=== PATIENT | male | born 1955 | race Caucasian/White ===

== ENCOUNTER 2020-10-09 06:09 | Outpatient (REF) | payer BC, SELFPAY ==
[2020-10-09 11:08] LABS: Urine Cytology See Pathology rpt
[2020-10-09 11:14] LABS: MANUAL DIFF FLAG NO
[2020-10-09 11:31] LABS: Basophils Absolute Auto 0.1 X10*3/uL (0.0-0.2); Basophils Percent Auto 1.1 % (0-2); Eosinophils Absolute Auto 0.2 X10*3/uL (0.0-0.4); Hematocrit 45.3 % (42-52); Hemoglobin 15.3 g/dl (14.0-18.0); Imm Gran Abs Auto 0.02 X10*3/uL (0.00-0.03); Imm Gran Pct Auto 0.3 % (0.0-0.4); Lymphocytes Absolute Auto 1.5 X10*3/uL (1.2-4.9); Lymphocytes Percent Auto 19.7 % (20-40); Mean Corpuscular HGB Conc 33.8 g/dl (31.0-36.0); Mean Corpuscular Hemoglobin 29.8 pg (27.0-33.0); Mean Corpuscular Volume 88.3 fL (80-98); Mean Platelet Volume 10.2 fL (9.4-12.4); Monocytes Absolute Auto 0.5 X10*3/uL (0.1-1.2); Monocytes Percent Auto 7.1 % (2-11); Neutrophils Absolute Auto 5.2 X10*3/uL (2.0-8.3); Neutrophils Percent Auto 68.8 % (45-73); Platelet Count 344 X10*3/uL (160-400); Red Blood Count 5.13 X10*6/uL (4.60-5.80); Red Cell Distribution Width 13.2 % (11.0-16.0); White Blood Count 7.6 X10*3/uL (4.8-10.8)
[2020-10-09 11:41] LABS: Glucose Urine UA NEG (NEG); Leukocyte Esterase Urine TRACE (NEG); Nitrite Urine POS (NEG); PH 5.5 (5.0-8.0); Specific Gravity - Urine 1.025 (1.005-1.025); Urine Blood 1+ (NEG); Urine Ketones NEG (NEG); Urine Protein TRACE MG/DL (NEG-TRACE)
[2020-10-09 11:42] LABS: Appearance Urine HAZY; Color Urine YELLOW
[2020-10-09 12:15] LABS: Bacteria Urine 1+ /LPF; Squamous Epithelial Cell Urine TRACE /LPF
[2020-10-09 12:27] LABS: Thyroid Stimulating Hormone 1.12 uIU/mL (0.32-4.0); Vitamin D 25-OH Total 32.9 ng/mL (>30)
[2020-10-09 12:33] LABS: Alanine Aminotransferase 25 U/L (0-40); Albumin Level 4.7 g/dL (3.5-5.0); Alkaline Phosphatase 84 U/L (39-117); Anion Gap 17 (12-20); Aspartate Amino Transferase 18 U/L (5-37); Bilirubin Total 0.4 mg/dL (0.0-1.0); Blood Urea Nitrogen 16 mg/dL (9-16); Calcium 9.5 mg/dL (8.4-10.2); Carbon Dioxide 22 mmol/L (22-29); Chloride 104 mmol/L (96-108); Cholesterol 166 mg/dL; Estimated Glomerular Filt Rate > 60; Glucose Fasting 106 mg/dL (60-99); HDL Cholesterol 40 mg/dL; LDL Cholesterol Calculated 102 mg/dl; Potassium 4.7 mmol/L (3.3-5.1); Sodium 138 mmol/L (135-145); Total Protein 7.3 g/dL (6.5-8.0); Triglycerides 121 mg/dL; Uric Acid 6.9 mg/dL (3.4-7.0)
[2020-10-09 13:29] LABS: Prostate Specific Antigen < 0.05 ng/mL (<0.05-4.0)
== END 2020-10-09 06:10 | disposition home or self-care (01) ==
LOC: HO.HMGCLDS 06:09
PROVIDERS: PCP Internal Medicine; Visit Provider Internal Medicine
DX: I10 Essential (primary) hypertension (principal); E66.01 Morbid (severe) obesity due to excess calories; E78.00 Pure hypercholesterolemia, unspecified; E55.9 Vitamin D deficiency, unspecified; M10.072 Idiopathic gout, left ankle and foot; Z98.890 Other specified postprocedural states
CPT/HCPCS: 36415; 80053; 80061; 81001; 82306; 84153; 84443; 84550; 85025; 88112

== ENCOUNTER 2020-12-17 10:19 | Outpatient (REF) | payer BC, SELFPAY ==
[2020-12-17 12:14] LABS: Blood Urea Nitrogen 22 mg/dL (9-16); Estimated Glomerular Filt Rate > 60
== END 2020-12-17 10:20 | disposition home or self-care (01) ==
LOC: HO.HMGCLDS 10:19
PROVIDERS: PCP Internal Medicine; Visit Provider Urology
DX: C67.0 Malignant neoplasm of trigone of bladder (principal)
CPT/HCPCS: 36415; 82565; 84520

== ENCOUNTER 2021-04-13 06:55 | Day surgery (SDC) | payer BC, SELFPAY ==
[2021-04-07 14:59] VITALS: BMI 47.5
[2021-04-13 07:08] VITALS: BP 147/82; PULSE 58; RESP 16; TEMP 35.9; O2SAT 96
[2021-04-13] MEDS: Lactated Ringers 1,000 ML 50 ML IVCONT (07:26)
--- NOTE | 2021-04-13 08:12 | MHC.SHP ---
Pre-Procedural Eval Section A Date of Service: 04/13/21 The patient is an INPATIENT: No Changes since office visit: No Cold of Flu in the past 2 weeks, No New Medical Problems, No Changes in Medication and No Patient answered all questions The History & Physical has been completed within 30 days and I have reviewed it.: Yes Section B Chief Complaint: screening,epigastric pain Allergies: Allergies Allergy/AdvReac Type Severity Reaction Status Date / Time NSAIDS (Non-Steroidal AdvReac Intermediate Gastrointestinal Verified 04/07/21 14:41 Anti-Inflamma Upset Plan I have reviewed the history and physical and performed a pertinent physical examination on my patient. No changes have occurred unless specified.
--- NOTE | 2021-04-13 08:39 | P.CONAN_ITS ---
[facility] Past Medical History Medical History Asthma Bladder cancer COVID-19 vaccine series completed Elevated cholesterol Essential tremor Gout HTN (hypertension) Prostate cancer Sleep apnea Surgical History Surgical History H/O colonoscopy Hx of cystoscopy Hx of cystoscopy Hx of prostatectomy Hx of resection of small bowel History of Problems with Anesthesia: No Social History Social History Are you a primary care professional to a significant other at home: No Do you presently have visiting nurse or other home services: No Patient Tobacco Use Status: Former Tobacco user Quit Date: 1999 Tobacco use type: Cigarette Use of substances other than those prescribed or required for medical reasons: No Have you been hit, kicked, punched, or otherwise hurt by someone within the past year? If so, by whom?: No Are you DNR?: No Advance Directives Information Provided: Yes (states is his ) Advance Directives on File: No Recently lost weight without trying: No Nutrition Risks: No Nutritional Risk Poor oral hygiene: No Meds Allergies Allergy/AdvReac Type Severity Reaction Status Date / Time NSAIDS (Non-Steroidal AdvReac Intermediate Gastrointestinal Verified 04/07/21 14:41 Anti-Inflamma Upset Active Medications: Current Medications Generic Name Dose Route Start Last Admin Trade Name Freq PRN Reason Stop Dose Admin Lactated Ringer's 1,000 mls @ 50 mls/hr 04/13/21 08:30 04/13/21 07:26 Lr IVCONT 50 mls/hr .Q20H AVIS Administration Home Medications Medication Instructions Recorded Confirmed Last Taken Type albuterol sulfate 90 mcg/actuation 2 puff PO Q6H PRN 04/07/21 04/07/21 Unknown History aerosol inhaler allopurinol 300 mg tablet 1 tab PO DAILY 04/07/21 04/07/21 Unknown History aspirin 81 mg tablet,delayed 81 mg PO DAILY 04/07/21 04/07/21 Unknown History release (Aspirin Low Dose) cholecalciferol (vitamin D3) 50 50 mcg PO DAILY 04/07/21 04/07/21 Unknown History mcg (2,000 unit) capsule (Vitamin D3) lisinopril 40 mg tablet 1 tab PO DAILY 04/07/21 04/07/21 Unknown History pravastatin 40 mg tablet 1 tab PO DAILY 04/07/21 04/07/21 Unknown History propranolol 60 mg capsule,24 1 cap PO DAILY 04/07/21 04/07/21 04/13/21 06:00 History hr,extended release Exam Exam Date and Time: April 13, 2021 0839 Height,Weight and Vital Signs: Height 6 ft 1 in Weight 163.293 kg Last Vital Signs Temp 96.7 F L 04/13/21 07:08 Pulse 58 04/13/21 07:08 Resp 16 04/13/21 07:08 BP 147/82 H 04/13/21 07:08 Pulse Ox 96 04/13/21 07:08 Airway Mallampati Class: III TM Dist: >3cm Neck ROM: Limited Loose/Missing/Broken Teeth: No Heart: RRR Lungs: CTA Assessment and Plan Assessment Anesthesia Assessment: Anesthesia Plan Discussed and Chart Reviewed Final Anesthetic Review History of Problems with Anesthesia: No NPO: Yes ASA Class: III Final Preanesthetic Review: Meds/Allgs Chart Reviewed, Consent Obtained/Reviewed and Anes Risks/Benef Reviewed Patient Risk: Intermediate Procedure Risk: Intermediate Anesthetic Plan Anesthetic Plan: MAC: Disposition: Standard PACU
--- NOTE | 2021-04-13 09:14 | P.BOP_ITS ---
Brief Operative Note Date of Service: 04/13/21 Pre-op diagnosis: screening, epigastric pain Post-op diagnosis: same Procedure: egd, colonoscopy Surgeon: Francisco Blackburn Anesthesia: MAC Was an Assistant To The Vice President used for this Procedure?: No Estimated blood loss (mL): 2 Pathology: other (see nurses notes) Condition: stable Disposition: PACU
[2021-04-13 09:17] VITALS: BP 122/67; PULSE 61; RESP 18; TEMP 36.1; O2SAT 98
[2021-04-13 09:32] VITALS: BP 125/61; PULSE 51; RESP 18; TEMP 36.1; O2SAT 96
--- NOTE | 2021-04-13 10:49 | OP_ITS ---
SURGEON: Francisco Blackburn MD INDICATIONS: 1. Epigastric pain. 2. Colon cancer screening. PREOPERATIVE DIAGNOSIS: POSTOPERATIVE DIAGNOSIS: PROCEDURE PERFORMED: 1. Upper endoscopy with biopsy. 2. Colonoscopy to the terminal ileum. ESTIMATED BLOOD LOSS: COMPLICATIONS: ANESTHESIA: ASSISTANTS: SPECIMENS: MEDICATIONS: Monitored anesthesia care. DESCRIPTION OF PROCEDURE: The history and physical performed. The risks and benefits of the procedure were explained to the patient. Informed consent was obtained. The patient was placed in the left lateral decubitus position. The Olympus video gastroscope was introduced into the esophagus, stomach, and duodenum. Examination was performed and the scope was removed. He was repositioned for colonoscopy. A digital rectal exam was performed and was found to be normal. The Olympus pediatric video colonoscope was introduced into the rectum and advanced to the cecum without difficulty. The cecum was identified by transillumination, palpation, and identification of ileocecal valve. Care was used to ensure that the scope negotiated the large abdominal wall hernia carefully and no excessive pressure was used to move the scope to the cecum. FINDINGS: UPPER ENDOSCOPY: Esophagus: There was a 2 cm area of likely Velarde's esophagus extending from 41 to 43 cm. Biopsies were obtained at 43 cm at the EG junction and at 41 cm. There was no raised lesions or ulcerated areas. Stomach: The stomach was normal. No ulcer was seen. Biopsies were obtained from the antrum. Duodenum: The bulb and second portion were normal. COLONOSCOPY: The terminal ileum was briefly examined and appeared normal. There was a large amount of liquid stool and formed stool limiting the examination for detection of small polyps. This was washed and suctioned as best possible. No polyps were identified. There was mild sigmoid diverticulosis. Retroflexed examination showed small internal hemorrhoids. IMPRESSION: 1. Velarde's esophagus. 2. Diverticulosis. RECOMMENDATIONS: 1. Follow up the biopsy results. 2. Repeat colonoscopy is recommended in 10 years for average risk individuals. MD JAH Perez/CHARLIE / [id number]
== END 2021-04-13 10:00 | disposition home or self-care (01) ==
PROVIDERS: PCP Internal Medicine; Visit Provider Internal Medicine Gastroenterology
PROC: (CPT 45378; principal; 2021-04-13 08:10)
DX: Z12.11 Encounter for screening for malignant neoplasm of colon (principal); K57.30 Diverticulosis of large intestine without perforation or abscess without bleeding; R10.13 Epigastric pain; K22.70 Barrett's esophagus without dysplasia; K43.9 Ventral hernia without obstruction or gangrene; I10 Essential (primary) hypertension; Z79.82 Long term (current) use of aspirin; Z79.899 Other long term (current) drug therapy
CPT/HCPCS: 45378; 43239; 88305; 88342; J2405; J2765

== ENCOUNTER 2021-05-04 06:26 | Outpatient (REF) | payer BC, SELFPAY ==
[2021-05-04 12:32] LABS: Blood Urea Nitrogen 20 mg/dL (9-16); Estimated Glomerular Filt Rate > 60
== END 2021-05-04 06:27 | disposition home or self-care (01) ==
LOC: HO.HMGCLDS 06:26
PROVIDERS: PCP Internal Medicine; Visit Provider Urology
DX: C67.0 Malignant neoplasm of trigone of bladder (principal)
CPT/HCPCS: 36415; 82565; 84520

== ENCOUNTER → 2021-12-07 07:57 | Outpatient (BNVA) | payer BC, SELFPAY | PROVIDERS: PCP Internal Medicine; Visit Provider Nurse Practitioner Family | DX: Z13.89 Encounter for screening for other disorder (principal) ==

== ENCOUNTER → 2022-01-03 09:01 | Outpatient (REF) | payer BC, SELFPAY | LOC: HO.SL 09:01 | PROVIDERS: PCP Internal Medicine; Visit Provider Nurse Practitioner Family | DX: G47.33 Obstructive sleep apnea (adult) (pediatric) (principal); R06.83 Snoring; G47.00 Insomnia, unspecified; G47.19 Other hypersomnia | CPT/HCPCS: 95806 ==

== ENCOUNTER 2022-02-04 06:34 | Outpatient (REF) | payer BC, SELFPAY ==
[2022-02-04 11:14] LABS: MANUAL DIFF FLAG NO
[2022-02-04 11:19] LABS: Basophils Absolute Auto 0.1 X10*3/uL (0.0-0.2); Eosinophils Absolute Auto 0.3 X10*3/uL (0.0-0.4); Eosinophils Percent Auto 3.9 % (0-4); Hematocrit 43.4 % (42.0-52.0); Hemoglobin 14.7 g/dl (14.0-18.0); Imm Gran Abs Auto 0.03 X10*3/uL (0.00-0.03); Imm Gran Pct Auto 0.4 % (0.0-0.4); Lymphocytes Absolute Auto 1.5 X10*3/uL (1.2-4.9); Lymphocytes Percent Auto 21.5 % (20-40); Mean Corpuscular HGB Conc 33.9 g/dl (31.0-36.0); Mean Corpuscular Hemoglobin 30.3 pg (27.0-33.0); Mean Corpuscular Volume 89.5 fL (80.0-98.0); Mean Platelet Volume 10.1 fL (9.4-12.4); Monocytes Absolute Auto 0.6 X10*3/uL (0.1-1.2); Monocytes Percent Auto 8.2 % (2-11); Neutrophils Absolute Auto 4.5 x10*3/uL (2.0-8.3); Platelet Count 296 X10*3/uL (160-400); Red Blood Count 4.85 X10*6/uL (4.60-5.80)
[2022-02-04 11:47] LABS: Alanine Aminotransferase 22 U/L (0-40); Albumin Level 4.3 g/dL (3.5-5.0); Alkaline Phosphatase 103 U/L (39-117); Anion Gap 13 (12-20); Aspartate Amino Transferase 18 U/L (5-37); Bilirubin Total 0.5 mg/dL (0.0-1.0); Blood Urea Nitrogen 20 mg/dL (9-16); C Reactive Protein 0.63 mg/dL (< or = 0.50); Carbon Dioxide 24 mmol/L (22-29); Chloride 105 mmol/L (96-108); Cholesterol 135 mg/dL; Estimated Glomerular Filt Rate > 60; Glucose Fasting 104 mg/dL (60-99); HDL Cholesterol 34 mg/dL; LDL Cholesterol Calculated 75 mg/dl; Potassium 4.3 mmol/L (3.3-5.1); Sodium 138 mmol/L (135-145); Total Protein 6.5 g/dL (6.5-8.0); Triglycerides 133 mg/dL; Uric Acid 5.9 mg/dL (3.4-7.0)
[2022-02-04 11:59] LABS: Erythrocyte Sedimentation Rate 4 MM/HR (0-15)
[2022-02-04 12:02] LABS: Thyroid Stimulating Hormone 1.94 uIU/mL (0.32-4.0); Vitamin D 25-OH Total 25.8 ng/mL (>30)
== END 2022-02-04 06:35 | disposition home or self-care (01) ==
LOC: HO.HMGCLDS 06:34
PROVIDERS: Visit Provider Internal Medicine
DX: G47.9 Sleep disorder, unspecified (principal); I10 Essential (primary) hypertension; E55.9 Vitamin D deficiency, unspecified; E78.00 Pure hypercholesterolemia, unspecified; R25.1 Tremor, unspecified; E66.01 Morbid (severe) obesity due to excess calories; M10.072 Idiopathic gout, left ankle and foot
CPT/HCPCS: 36415; 80053; 80061; 82306; 84443; 84550; 85025; 85652; 86140

== ENCOUNTER 2022-07-13 14:44 | Outpatient (REF) | payer BC, SELFPAY ==
[2022-07-13 16:28] LABS: MANUAL DIFF FLAG NO
[2022-07-13 16:34] LABS: Basophils Absolute Auto 0.1 X10*3/uL (0.0-0.2); Basophils Percent Auto 0.8 % (0-2); Eosinophils Absolute Auto 0.2 X10*3/uL (0.0-0.4); Eosinophils Percent Auto 1.5 % (0-4); Hematocrit 43.7 % (42.0-52.0); Hemoglobin 15.2 g/dl (14.0-18.0); Imm Gran Abs Auto 0.05 X10*3/uL (0.00-0.03); Imm Gran Pct Auto 0.5 % (0.0-0.4); Lymphocytes Absolute Auto 1.6 X10*3/uL (1.2-4.9); Lymphocytes Percent Auto 16.6 % (20-40); Mean Corpuscular HGB Conc 34.8 g/dl (31.0-36.0); Mean Corpuscular Hemoglobin 30.4 pg (27.0-33.0); Mean Corpuscular Volume 87.4 fL (80.0-98.0); Mean Platelet Volume 10.1 fL (9.4-12.4); Monocytes Absolute Auto 0.7 X10*3/uL (0.1-1.2); Monocytes Percent Auto 7.4 % (2-11); Neutrophils Absolute Auto 7.3 x10*3/uL (2.0-8.3); Neutrophils Percent Auto 73.2 % (45-73); Platelet Count 356 X10*3/uL (160-400); Red Cell Distribution Width 12.4 % (11.0-16.0); White Blood Count 9.9 X10*3/uL (4.8-10.8)
[2022-07-13 16:47] LABS: Alanine Aminotransferase 22 U/L (0-40); Albumin Level 4.5 g/dL (3.5-5.0); Alkaline Phosphatase 81 U/L (39-117); Anion Gap 13 (12-20); Aspartate Amino Transferase 15 U/L (5-37); Bilirubin Total 0.4 mg/dL (0.0-1.0); Blood Urea Nitrogen 14 mg/dL (9-16); C Reactive Protein 0.81 mg/dL (< or = 0.50); Calcium 9.5 mg/dL (8.4-10.2); Carbon Dioxide 26 mmol/L (22-29); Chloride 100 mmol/L (96-108); Estimated Glomerular Filt Rate > 60; Glucose Random 96 mg/dL (60-115); Sodium 135 mmol/L (135-145); Total Protein 6.7 g/dL (6.5-8.0)
== END 2022-07-13 14:45 | disposition home or self-care (01) ==
LOC: HO.HMGCLDS 14:44
PROVIDERS: PCP Internal Medicine; Visit Provider Internal Medicine
DX: Z13.89 Encounter for screening for other disorder (principal)
CPT/HCPCS: 36415; 80053; 85025; 86140

== ENCOUNTER 2022-07-14 06:36 | Outpatient (REF) | payer BC, SELFPAY ==
[2022-07-14 13:19] LABS: Adenovirus F 40/41 Not Detected (Not Detect.); Astrovirus Not Detected (Not Detect.); Campylobacter Not Detected (Not Detect.); Cryptosporidium Not Detected (Not Detect.); Cyclospora cayetanensis Not Detected (Not Detect.); E. coli EAEC Not Detected (Not Detect.); E. coli EPEC Not Detected (Not Detect.); E. coli ETEC Not Detected (Not Detect.); E. coli STEC Not Detected (Not Detect.); Entamoeba histolytica Not Detected (Not Detect.); Giardia lamblia Not Detected (Not Detect.); Norovirus GI/GII Not Detected (Not Detect.); Plesiomonas shigelloides Not Detected (Not Detect.); Rotavirus A Not Detected (Not Detect.); Salmonella Not Detected (Not Detect.); Sapovirus Not Detected (Not Detect.); Shigella sp./EIEC Not Detected (Not Detect.); Vibrio Not Detected (Not Detect.); Vibrio Cholerae Not Detected (Not Detect.); Yersinia enterocolitica Not Detected (Not Detect.)
[2022-07-14 13:45] LABS: CDiff Gene PCR NEGATIVE (Negative)
== END 2022-07-14 06:37 | disposition home or self-care (01) ==
LOC: HO.HMGCLDS 06:36
PROVIDERS: PCP Internal Medicine; Visit Provider Internal Medicine
DX: R19.7 Diarrhea, unspecified (principal)
CPT/HCPCS: 87493; 87507

== ENCOUNTER 2022-10-31 06:13 | Outpatient (REF) | payer MEDICARE, SELFPAY ==
[2022-10-31 11:36] LABS: MANUAL DIFF FLAG NO
[2022-10-31 11:49] LABS: Basophils Absolute Auto 0.1 X10*3/uL (0.0-0.2); Basophils Percent Auto 0.9 % (0-2); Eosinophils Absolute Auto 0.2 X10*3/uL (0.0-0.4); Eosinophils Percent Auto 3.2 % (0-4); Hematocrit 45.6 % (42.0-52.0); Hemoglobin 14.9 g/dl (14.0-18.0); Imm Gran Abs Auto 0.03 X10*3/uL (0.00-0.03); Imm Gran Pct Auto 0.4 % (0.0-0.4); Lymphocytes Absolute Auto 1.4 X10*3/uL (1.2-4.9); Lymphocytes Percent Auto 19.3 % (20-40); Mean Corpuscular HGB Conc 32.7 g/dl (31.0-36.0); Mean Corpuscular Hemoglobin 29.8 pg (27.0-33.0); Mean Corpuscular Volume 91.2 fL (80.0-98.0); Mean Platelet Volume 9.8 fL (9.4-12.4); Monocytes Absolute Auto 0.5 X10*3/uL (0.1-1.2); Monocytes Percent Auto 7.1 % (2-11); Neutrophils Absolute Auto 5.2 x10*3/uL (2.0-8.3); Neutrophils Percent Auto 69.1 % (45-73); Platelet Count 308 X10*3/uL (160-400); Red Cell Distribution Width 12.8 % (11.0-16.0); White Blood Count 7.5 X10*3/uL (4.8-10.8)
[2022-10-31 11:52] LABS: Appearance Urine Cloudy; Color Urine Yellow; Glucose Urine UA Negative (Negative); Leukocyte Esterase Urine Small (1+) (Negative); Nitrite Urine Negative (Negative); PH 5.5 (5.0-9.0); UMIC TRIGGER UA YES; Urine Blood Trace (Negative); Urine Ketones Negative (Negative); Urine Protein 30 (1+) mg/dL (Neg-Trace)
[2022-10-31 11:59] LABS: Bacteria Urine None Seen (None Seen); Hyaline Casts Urine 0-2 /LPF (0-2); WBC Urine 21-50 /HPF (0-5)
[2022-10-31 12:32] LABS: Alanine Aminotransferase 25 U/L (0-40); Albumin Level 4.5 g/dL (3.5-5.0); Alkaline Phosphatase 80 U/L (39-117); Anion Gap 14 (12-20); Aspartate Amino Transferase 17 U/L (5-37); Bilirubin Total 0.7 mg/dL (0.0-1.0); Blood Urea Nitrogen 18 mg/dL (9-16); Calcium 9.5 mg/dL (8.4-10.2); Carbon Dioxide 28 mmol/L (22-29); Chloride 102 mmol/L (96-108); Cholesterol 143 mg/dL; Estimated Glomerular Filt Rate > 60; Glucose Fasting 104 mg/dL (60-99); HDL Cholesterol 39 mg/dL; LDL Cholesterol Calculated 81 mg/dl; Potassium 4.6 mmol/L (3.3-5.1); Sodium 139 mmol/L (135-145); Total Protein 6.7 g/dL (6.5-8.0); Triglycerides 119 mg/dL; Uric Acid 5.2 mg/dL (3.4-7.0)
[2022-10-31 13:06] LABS: Thyroid Stimulating Hormone 1.24 uIU/mL (0.32-4.0); Vitamin D 25-OH Total 32.9 ng/mL (>30)
[2022-10-31 14:45] LABS: Prostate Specific Antigen < 0.10 ng/mL (<0.05-4.0)
== END 2022-10-31 06:14 | disposition home or self-care (01) ==
LOC: HO.HMGCLDS 06:13
PROVIDERS: PCP Internal Medicine; Visit Provider Internal Medicine
DX: Z12.5 Encounter for screening for malignant neoplasm of prostate (principal); M10.072 Idiopathic gout, left ankle and foot; I10 Essential (primary) hypertension; E55.9 Vitamin D deficiency, unspecified; E66.01 Morbid (severe) obesity due to excess calories; E78.00 Pure hypercholesterolemia, unspecified
CPT/HCPCS: 36415; 80053; 80061; 81001; 82306; 84153; 84443; 84550; 85025

== ENCOUNTER 2023-04-04 09:14 | Day surgery (SDC) | payer MEDICARE, SELFPAY ==
--- NOTE | 2023-04-04 09:12 | P.CONAN_ITS ---
HPI - Anesthesia Eval Consult details Narrative: egd PMFSH Active Problems Active Problems: All Active Problems (Updated 02/08/22 @ 09:16 by Crissy Rosales CNP) ROMIE (obstructive sleep apnea) (Acute) Excessive daytime sleepiness (Acute) Insomnia (Acute) Sleep disorder, unspecified (Acute) Past Medical History Medical History Asthma Bladder cancer COVID-19 vaccine series completed Elevated cholesterol Essential tremor Gout HTN (hypertension) Prostate cancer Sleep apnea Family History Family History Father Lung cancer Hypertension Mother No problems noted. Family history of problems with anesthesia: No Surgical History Surgical History H/O colonoscopy Hx of appendectomy Hx of cystoscopy Hx of cystoscopy Hx of prostatectomy Hx of resection of small bowel History of Problems with Anesthesia: No Social History Social History Household Members: Spouse Are you a primary restorative care technician to a significant other at home: No Do you presently have visiting nurse or other home services: No Alcohol intake: current Alcohol intake frequency: other Patient Tobacco Use Status: Former Tobacco user Quit Date: 1999 Tobacco use type: Cigarette Current occupational status: retired Meds Allergies Allergy/AdvReac Type Severity Reaction Status Date / Time NSAIDS (Non-Steroidal AdvReac Intermediate Gastrointestinal Verified 12/07/21 08:18 Anti-Inflamma Upset Home Medications Medication Instructions Recorded Confirmed Last Taken Type albuterol sulfate 90 mcg/actuation 2 puff PO Q6H PRN Wheezing 04/07/21 12/07/21 Unknown History aerosol inhaler allopurinol 300 mg tablet 1 tab PO DAILY 04/07/21 12/07/21 Unknown History aspirin 81 mg tablet,delayed 81 mg PO DAILY 04/07/21 12/07/21 Unknown History release (Berta Low Dose Aspirin) cholecalciferol (vitamin D3) 50 50 mcg PO DAILY 04/07/21 12/07/21 Unknown History mcg (2,000 unit) capsule (Vitamin D3) lisinopril 40 mg tablet 1 tab PO DAILY 04/07/21 12/07/21 Unknown History pravastatin 40 mg tablet 1 tab PO DAILY 04/07/21 12/07/21 Unknown History propranolol 60 mg capsule,24 1 cap PO DAILY 04/07/21 12/07/21 04/13/21 06:00 History hr,extended release omeprazole 20 mg capsule,delayed 20 mg PO QAM 12/07/21 12/07/21 Unknown History release alprazolam 1 mg tablet 0.5 mg PO DAILY PRN 02/08/22 Unknown History Exam Exam Date and Time: April 04, 2023 0912 Airway Mallampati Class: III TM Dist: >3cm Neck ROM: Limited Heart: rrr Lungs: cta Assessment and Plan Assessment Anesthesia Assessment: Anesthesia Plan Discussed and Chart Reviewed Final Anesthetic Review Family History of Problems with Anesthesia: No History of Problems with Anesthesia: No NPO: Yes ASA Class: III Final Preanesthetic Review: No Changes in Pt Med Stat, Meds/Allgs Chart Reviewed, Consent Obtained/Reviewed and Anes Risks/Benef Reviewed Patient Risk: Intermediate Procedure Risk: Intermediate Anesthetic Plan Anesthetic Plan: MAC: and Regional Block Disposition: Standard PACU
[2023-04-04 09:34] VITALS: BMI 44.1
[2023-04-04 09:50] VITALS: BP 137/64; PULSE 60; RESP 18; TEMP 36.2; O2SAT 95; BMI 44.1
--- NOTE | 2023-04-04 11:59 | MHC.SHP ---
Pre-Procedural Eval Section A Date of Service: 04/04/23 Section B Chief Complaint: Velarde's esophagus without dysplasia Details of Present Illness: see H&P no changes Relevant Family History (Specify if Yes): No Relevant Social History: None Present Medications: see Short Stay Collaborative assessment Medical History: No relevant PMH Allergies: Allergies Allergy/AdvReac Type Severity Reaction Status Date / Time NSAIDS (Non-Steroidal AdvReac Intermediate Gastrointestinal Verified 12/07/21 08:18 Anti-Inflamma Upset Review of Systems Sugical H&P ROS: Negative: Constitution, Cardiovascular, Respiratory, Neurological, Psychiatric, Hem-Onc, Allergic/Immunologic, Gastrointestinal, Genitourinary, Musculoskeletal, Integumentary, Endocrine and Eyes/Ears/Nose/Throat Exam Surgical H&P Exam: Normal: HEENT, Normal: Heart, Normal: Lungs, Normal: Extremities, Normal: Abdomen, Normal: Skin and Normal: Neurological Plan Diagnosis/Plan: Unchanged I have reviewed the history and physical and performed a pertinent physical examination on my patient. No changes have occurred unless specified. Time Spent With Patient Time: Total time managing care of this patient today ____ minutes.
--- NOTE | 2023-04-04 12:00 | P.BOP_ITS ---
Brief Operative Note Date of Service: 04/04/23 Pre-op diagnosis: barretts Post-op diagnosis: same Surgeon: Francisco Blackburn Anesthesia: MAC Was an Deckhand Maintenance used for this Procedure?: No Estimated blood loss (mL): 5 Pathology: other Condition: stable Disposition: PACU
[2023-04-04 12:30] VITALS: BP 114/60; PULSE 66; RESP 18; TEMP 36.1; O2SAT 98
[2023-04-04 12:45] VITALS: BP 120/55; PULSE 56; RESP 18; TEMP 36.1; O2SAT 95
--- NOTE | 2023-04-04 13:04 | OP_ITS ---
DATE OF SERVICE: 04/04/2023 SURGEON: Francisco Blackburn MD INDICATIONS: Velarde esophagus. PREOPERATIVE DIAGNOSIS: POSTOPERATIVE DIAGNOSIS: PROCEDURE PERFORMED: Upper endoscopy with biopsy. ESTIMATED BLOOD LOSS: COMPLICATIONS: ANESTHESIA: Monitored anesthesia care. ASSISTANTS: SPECIMENS: DESCRIPTION OF PROCEDURE: A history and physical was performed. The risks and benefits of the procedure were explained to the patient, and informed consent was obtained. The patient was placed in the left lateral decubitus position. The Olympus video gastroscope was introduced into the esophagus, stomach, and duodenum. Examination was performed. The scope was removed. He tolerated the procedure well and was returned to the recovery area in stable condition. FINDINGS: Esophagus: The esophagus showed a 2-cm length of Velarde esophagus with no ulcerated areas or raised lesions. Biopsies were obtained from the EG junction at 40 cm and at 38 cm as well. Stomach: The stomach showed no evidence of masses, ulcers, or polyps. Duodenum: The bulb and second portions were normal. IMPRESSION: Velarde esophagus. RECOMMENDATION: Follow up the biopsy results. Francisco Blackburn MD BC/MODL / [id number]
== END 2023-04-04 13:05 | disposition home or self-care (01) ==
PROVIDERS: PCP Internal Medicine; Visit Provider Internal Medicine Gastroenterology
PROC: 0DJ08ZZ Inspection of Upper Intestinal Tract, Via Natural or Artificial Opening Endoscopic (ICD-10-PCS; CPT 43235; principal; 2023-04-04 10:20)
DX: K22.70 Barrett's esophagus without dysplasia (principal); K21.9 Gastro-esophageal reflux disease without esophagitis; K58.1 Irritable bowel syndrome with constipation; J45.909 Unspecified asthma, uncomplicated; I10 Essential (primary) hypertension; E78.00 Pure hypercholesterolemia, unspecified; C61 Malignant neoplasm of prostate; C67.9 Malignant neoplasm of bladder, unspecified; M10.9 Gout, unspecified; G47.33 Obstructive sleep apnea (adult) (pediatric); G25.0 Essential tremor; Z90.49 Acquired absence of other specified parts of digestive tract; Z79.899 Other long term (current) drug therapy; Z79.82 Long term (current) use of aspirin; Z66 Do not resuscitate; Z98.890 Other specified postprocedural states
CPT/HCPCS: 43239; 88305

== ENCOUNTER 2023-12-12 07:33 | Outpatient (REF) | payer MEDICARE, SELFPAY ==
[2023-12-12 10:24] LABS: MANUAL DIFF FLAG NO
[2023-12-12 10:26] LABS: Urine Cytology See Pathology rpt
[2023-12-12 10:41] LABS: Basophils Absolute Auto 0.1 X10*3/uL (0.0-0.2); Eosinophils Absolute Auto 0.3 X10*3/uL (0.0-0.4); Eosinophils Percent Auto 3.2 % (0-4); Hematocrit 44.3 % (42.0-52.0); Hemoglobin 15.2 g/dl (14.0-18.0); Imm Gran Abs Auto 0.03 X10*3/uL (0.00-0.03); Imm Gran Pct Auto 0.4 % (0.0-0.4); Lymphocytes Absolute Auto 1.5 X10*3/uL (1.2-4.9); Lymphocytes Percent Auto 19.1 % (20-40); Mean Corpuscular HGB Conc 34.3 g/dl (31.0-36.0); Mean Corpuscular Hemoglobin 30.7 pg (27.0-33.0); Mean Corpuscular Volume 89.5 fL (80.0-98.0); Monocytes Absolute Auto 0.7 X10*3/uL (0.1-1.2); Monocytes Percent Auto 8.5 % (2-11); Neutrophils Absolute Auto 5.3 x10*3/uL (2.0-8.3); Neutrophils Percent Auto 67.8 % (45-73); Platelet Count 281 X10*3/uL (160-400); Red Blood Count 4.95 X10*6/uL (4.60-5.80); Red Cell Distribution Width 12.8 % (11.0-16.0); White Blood Count 7.8 X10*3/uL (4.8-10.8)
[2023-12-12 10:43] LABS: Appearance Urine Cloudy; Color Urine Yellow; Glucose Urine UA Negative (Negative); Leukocyte Esterase Urine Moderate (2+) (Negative); Nitrite Urine Positive (Negative); Specific Gravity - Urine 1.025 (1.005-1.025); UMIC TRIGGER UA YES; Urine Blood Trace (Negative); Urine Ketones Negative (Negative); Urine Protein Trace mg/dL (Neg-Trace)
[2023-12-12 11:14] LABS: Alanine Aminotransferase 30 U/L (0-40); Albumin Level 4.4 g/dL (3.5-5.0); Alkaline Phosphatase 76 U/L (39-117); Anion Gap 16 (12-20); Aspartate Amino Transferase 22 U/L (5-37); Bilirubin Total 0.5 mg/dL (0.0-1.0); Blood Urea Nitrogen 21 mg/dL (9-16); Calcium 9.7 mg/dL (8.4-10.2); Carbon Dioxide 24 mmol/L (22-29); Chloride 102 mmol/L (96-108); Cholesterol 143 mg/dL (<200); Estimated Glomerular Filt Rate > 60; Glucose Fasting 106 mg/dL (60-99); HDL Cholesterol 35 mg/dL (>40); LDL Cholesterol Calculated 77 mg/dL (<100); Potassium 4.3 mmol/L (3.3-5.1); Sodium 138 mmol/L (135-145); Triglycerides 159 mg/dL (<150)
[2023-12-12 11:16] LABS: Prostate Specific Antigen < 0.10 ng/mL (<0.05-4.0)
[2023-12-12 11:18] LABS: Thyroid Stimulating Hormone 1.52 uIU/mL (0.32-4.0); Vitamin D 25-OH Total 41.5 ng/mL (>30)
[2023-12-12 11:19] LABS: RBC Urine 0-2 /HPF (0-2)
[2023-12-12 11:20] LABS: Bacteria Urine 4+ (None Seen); Squamous Epithelial Cell Urine 0-2 /HPF (0-2)
[2023-12-12 11:26] LABS: Hyaline Casts Urine 0-2 /LPF (0-2)
== END 2023-12-12 07:34 | disposition home or self-care (01) ==
LOC: HO.HMGCLDS 07:33
PROVIDERS: PCP Internal Medicine; Visit Provider Internal Medicine
DX: G47.9 Sleep disorder, unspecified (principal); E78.00 Pure hypercholesterolemia, unspecified; J45.20 Mild intermittent asthma, uncomplicated; K22.70 Barrett's esophagus without dysplasia; I10 Essential (primary) hypertension; M10.072 Idiopathic gout, left ankle and foot; E55.9 Vitamin D deficiency, unspecified; Z85.51 Personal history of malignant neoplasm of bladder; Z12.5 Encounter for screening for malignant neoplasm of prostate
CPT/HCPCS: 36415; 80053; 80061; 81001; 82306; 84153; 84443; 85025; 88112

== ENCOUNTER 2023-12-19 11:13 | Emergency (ER) | payer MEDICARE, SELFPAY ==
[2023-12-19] VITALS (7 sets, daily range): BP systolic 92–174; BP diastolic 60–76; PULSE 50–64; RESP 12–20; TEMP 36.4–36.8; O2SAT 92–96; BMI 47.3
--- NOTE | ~2023-12-19 | CT_ITS ---
EXAMINATION: CT ANGIOGRAM HEAD CT ANGIOGRAM NECK CLINICAL INFORMATION: Reason for Exam blurry vision and aphasia COMPARISON: Same day CT head TECHNIQUE: Initial noncontrast [employer] scout imaging of the head and neck was performed. Comparison is made with noncontrast head CT from earlier today. Test bolus sequences followed by intravenous administration 70 mL of Omnipaque 350. Helical imaging was performed in the axial plane from the aortic arch to the skull vertex. Delayed postcontrast imaging of the head was also performed. The data was processed at the computed tomography technologist's workstation for generation of MIP sequences. Angled MIPs and volume rendered reformatted images were also generated at an offline 3D workstation. Stenoses are assessed in accordance with Anderson et al. Quantification of Carotid Stenosis on CT Angiography. AJR 2006. 27(1):13-19. [address] CT examination was performed using dose optimization techniques as appropriate, variously including the following: *Automated exposure control *Adjustment of mA and/or kV according to patient size (this includes techniques or standardized protocols for targeted exams where dose is matched to indication/reason for exam; i.e. extremities or head) *Use of iterative reconstruction technique DLP: 1555 mGy-cm FINDINGS: CT HEAD: No abnormal intracranial enhancement are visualized. Please see separately dictated head CT for additional findings. CTA HEAD: Degraded secondary to significant intracranial venous contamination. Anterior circulation: Right internal carotid artery: Atherosclerosis without flow-limiting stenosis. Right middle cerebral artery: No hemodynamically significant stenosis. Right anterior cerebral artery: Diminutive A1 segment. Left internal carotid artery: Atherosclerosis without flow-limiting stenosis. Left middle cerebral artery: No hemodynamically significant stenosis. Left anterior cerebral artery: No hemodynamically significant stenosis. Posterior circulation: Right vertebral artery: No hemodynamically significant stenosis. Left vertebral artery: No hemodynamically significant stenosis. Basilar artery: No hemodynamically significant stenosis. Right posterior cerebral artery: No hemodynamically significant stenosis. Left posterior cerebral artery: origin. Severe stenosis at the origin the P2 segment. No high flow vascular malformation or significant aneurysmal dilatation is visualized. The major dural venous sinuses are grossly within normal limits given arterial technique. CTA NECK: Aortic arch: Normal anatomy. Right common carotid artery: No hemodynamically significant stenosis. Retropharyngeal course. Right proximal internal carotid artery: No hemodynamically significant stenosis. Retropharyngeal course. Right mid/distal internal carotid artery: No hemodynamically significant stenosis. Left common carotid artery: No hemodynamically significant stenosis. Left proximal internal carotid artery: Atherosclerosis without flow-limiting stenosis. Left mid/distal internal carotid artery: No hemodynamically significant stenosis. Right vertebral artery: No hemodynamically significant stenosis. Left vertebral artery: No hemodynamically significant stenosis. CT NECK: Melvern tonsilliths are noted. Polypoid mucosal thickening in the left maxillary sinus.Multilevel degenerative changes of the cervical spine. CT/CT angio head neck IMPRESSION: CTA NECK: No hemodynamically significant stenosis. CTA HEAD: Severe stenosis in the left posterior cerebral artery P2 segment. No proximal vessel occlusion.
--- NOTE | ~2023-12-19 | MR_ITS ---
EXAMINATION: MR BRAIN WITHOUT CONTRAST CLINICAL INFORMATION: Revision, aphasia, evaluate for infarction COMPARISON: Same-day CT head and CT angiogram of the head and neck TECHNIQUE: MRI of the brain was obtained using routine sequences without contrast. FINDINGS: There is no reduced diffusion to suggest acute infarct. Susceptibility weighted sequence is within normal limits. No mass effect, extra-axial collection, midline shift, or other herniation. Mild generalized cerebral volume loss with associated ventricular and sulcal prominence. Intracranial flow voids are preserved. Scattered polypoid mucosal thickening in the paranasal sinuses. The mastoid air cells are well-aerated. No focal expansile or destructive osseous lesion. MR/MR head/brain wo con IMPRESSION: No acute infarction. Mild generalized cerebral volume loss.
--- NOTE | ~2023-12-19 | CT_ITS ---
EXAMINATION: CT HEAD WITHOUT CONTRAST CLINICAL INFORMATION: Blurred vision. Transient aphasia and confusion. COMPARISON: None. TECHNIQUE: Contiguous axial imaging was performed from the skullbase to vertex without intravenous administration of contrast. This CT examination was performed using dose optimization techniques as appropriate, variously including the following: *Automated exposure control *Adjustment of mA and/or kV according to patient size (this includes techniques or standardized protocols for targeted exams where dose is matched to indication/reason for exam; i.e. extremities or head) *Use of iterative reconstruction technique DLP: 771 mGy-cm. FINDINGS: There is no evidence of acute intracranial hemorrhage or territorial infarction. No abnormal mass effect or midline shift is seen. Becerra to white matter differentiation is well preserved. No extra-axial fluid collections are identified. The ventricles are normal in size. Mild chronic white matter microangiopathy changes visible. The osseous structures and soft tissues are normal. The mastoid air cells are well aerated. There is mild mucosal thickening in the left maxillary antrum. CT/CT head/brain wo IV con IMPRESSION: No acute intracranial pathology.
--- NOTE | 2023-12-19 11:17 | ECG_ITS ---
Test Reason : CHEST PAIN Blood Pressure : / mmHG Vent. Rate : 049 BPM Atrial Rate : 049 BPM P-R Int : 194 ms QRS Dur : 162 ms QT Int : 466 ms P-R-T Axes : 034 021 023 degrees QTc Int : 420 ms Sinus bradycardia Right bundle branch block Abnormal ECG When compared with ECG of 24-JUL-2007 13:40, Right bundle branch block is now Present Referred By: Carmen Wright Electronically Signed By:Baljit Jara
--- NOTE | 2023-12-19 11:25 | ED_ITS ---
HPI - General Adult General Stated complaint: Chest pain/Confusion/Double vision Related Data Home Medications ?Medication ?Instructions ?Recorded ?Confirmed albuterol sulfate 90 mcg/actuation 2 puff PO Q6H PRN Wheezing 04/07/21 12/07/21 aerosol inhaler allopurinol 300 mg tablet 1 tab PO DAILY 04/07/21 12/07/21 aspirin 81 mg tablet,delayed 81 mg PO DAILY 04/07/21 12/07/21 release (Berta Low Dose Aspirin) cholecalciferol (vitamin D3) 50 50 mcg PO DAILY 04/07/21 12/07/21 mcg (2,000 unit) capsule (Vitamin D3) lisinopril 40 mg tablet 1 tab PO DAILY 04/07/21 12/07/21 pravastatin 40 mg tablet 1 tab PO DAILY 04/07/21 12/07/21 propranolol 60 mg capsule,24 1 cap PO DAILY 04/07/21 12/07/21 hr,extended release omeprazole 20 mg capsule,delayed 20 mg PO QAM 12/07/21 12/07/21 release alprazolam 1 mg tablet 0.5 mg PO DAILY PRN 02/08/22 Previous Rx's ?Medication ?Instructions ?Recorded gabapentin 100 mg capsule See Rx Instructions PO BEDTIME 30 02/08/22 days #90 caps magnesium oxide 400 mg PO BEDTIME 30 days #30 tabs 03/04/22 Allergies Allergy/AdvReac Type Severity Reaction Status Date / Time NSAIDS (Non-Steroidal AdvReac Intermediate Gastrointestinal Verified 12/19/23 11:33 Anti-Inflamma Upset PMFSH Past Medical History Medical History Asthma Bladder cancer COVID-19 vaccine series completed Elevated cholesterol Essential tremor Gout HTN (hypertension) Prostate cancer Sleep apnea Surgical History H/O colonoscopy Hx of appendectomy Hx of cystoscopy Hx of cystoscopy Hx of prostatectomy Hx of resection of small bowel Family History Family History Father Lung cancer Hypertension Mother No problems noted. Social History Social History Household Members: Spouse Are you a primary child care centre manager to a significant other at home: No Do you presently have visiting nurse or other home services: No Alcohol intake: current Alcohol intake frequency: other Patient Tobacco Use Status: Former Tobacco user Quit Date: 1999 Tobacco use type: Cigarette Current occupational status: retired Course Course Course Narrative: This is a Rapid Medical Examination (RME) performed by Donnell Wright PA-C in [facility]. Full HPI, ROS, assessment and treatment plan per primary provider in the Main ED. 68 y/o male with history of morbid obesity, ROMIE on CPAP, insomnia, Velarde's esophagus, essential tremor who presents to the ER for evaluation of acute onset of confusion, double vision, nausea, mild aphasia and indigestion that started this morning when he woke up at 730. Blurred vision improved, nausea and indigestion persist. No weakness, numbness, tingling. Still feels speech is slow. In triage, hypertensive 174/76. AAO x3. Strength is equal and symmetrical. CN II-XII grossly intact. Steady gait. Out of stroke treatment window as patient's symptoms were present upon waking up. Plan: CT head, EKG, labs Discharge Plan Discharge Prescriptions: No Action magnesium oxide 400 mg magnesium tablet 400 mg PO BEDTIME 30 Days Qty: 30 2RF pravastatin 40 mg tablet 1 tab PO DAILY propranolol 60 mg capsule,extended release 24 hr 1 cap PO DAILY aspirin [Berta Low Dose Aspirin] 81 mg Tablet,Delayed Release (Dr/Ec) 81 mg PO DAILY allopurinol 300 mg tablet 1 tab PO DAILY albuterol sulfate 90 mcg/actuation HFA aerosol inhaler 2 puff PO Q6H PRN (Reason: Wheezing) lisinopril 40 mg tablet 1 tab PO DAILY cholecalciferol (vitamin D3) [Vitamin D3] 50 mcg (2,000 unit) Capsule 50 mcg PO DAILY omeprazole 20 mg capsule,delayed release(DR/EC) 20 mg PO QAM alprazolam 1 mg tablet 0.5 mg PO DAILY PRN gabapentin 100 mg capsule See Rx Instructions PO BEDTIME 30 Days Qty: 90 2RF Rx Instructions: 1-3 capsules PO bedtime; Print Language: [place]
[2023-12-19 11:37] LABS: MANUAL DIFF FLAG NO
[2023-12-19 11:42] LABS: Venous Blood Gas Refer to POC result
[2023-12-19 11:43] LABS: VBG Base Excess 0.5 mmol/L; VBG HCO3 22 mmol/L (22-26); VBG pCO2 27 mmHg; VBG pO2 120 mmHg
[2023-12-19 11:45] LABS: Basophils Absolute Auto 0.1 X10*3/uL (0.0-0.2); Basophils Percent Auto 0.8 % (0-2); Eosinophils Absolute Auto 0.2 X10*3/uL (0.0-0.4); Eosinophils Percent Auto 2.4 % (0-4); Hematocrit 42.6 % (42.0-52.0); Hemoglobin 15.2 g/dl (14.0-18.0); Imm Gran Abs Auto 0.03 X10*3/uL (0.00-0.03); Imm Gran Pct Auto 0.4 % (0.0-0.4); Lymphocytes Percent Auto 13.1 % (20-40); Mean Corpuscular HGB Conc 35.7 g/dl (31.0-36.0); Mean Corpuscular Volume 86.9 fL (80.0-98.0); Mean Platelet Volume 9.6 fL (9.4-12.4); Monocytes Absolute Auto 0.4 X10*3/uL (0.1-1.2); Neutrophils Absolute Auto 5.8 x10*3/uL (2.0-8.3); Neutrophils Percent Auto 78.3 % (45-73); Platelet Count 270 X10*3/uL (160-400); Red Cell Distribution Width 12.8 % (11.0-16.0); White Blood Count 7.4 X10*3/uL (4.8-10.8)
[2023-12-19 11:47] LABS: INTERNATIONAL NORM RATIO 0.9 (0.9-1.1); Prothrombin Time 11.1 SEC (11.1-13.3)
[2023-12-19 11:49] LABS: Partial Thromboplastin Time 34.1 SEC (26.0-36.8)
[2023-12-19 11:54] LABS: Alanine Aminotransferase 29 U/L (0-40); Albumin Level 4.4 g/dL (3.5-5.0); Alkaline Phosphatase 76 U/L (39-117); Anion Gap 15 (12-20); Aspartate Amino Transferase 22 U/L (5-37); Bilirubin Direct 0.2 mg/dL (0.0-0.5); Bilirubin Total 0.5 mg/dL (0.0-1.0); Blood Urea Nitrogen 18 mg/dL (9-16); Calcium 9.7 mg/dL (8.4-10.2); Carbon Dioxide 20 mmol/L (22-29); Chloride 105 mmol/L (96-108); Creatinine Clr Calc Pharmacy 132.8; Estimated Glomerular Filt Rate > 60; Glucose Random 134 mg/dL (60-115); Lipase 19 U/L (8-78); Magnesium 1.5 mg/dL (1.6-2.6); Potassium 4.3 mmol/L (3.3-5.1); Sodium 136 mmol/L (135-145); Total Protein 7.1 g/dL (6.5-8.0)
[2023-12-19 11:59] LABS: B Type Natriuretic Peptide 27 pg/mL (<100)
[2023-12-19 12:05] LABS: Ethanol < 10 mg/dL; Troponin-I High Sensitivity < 2.7 ng/L (<3.5-35.0)
[2023-12-19 12:16] LABS: TSH reflex Free T4 1.15 uIU/mL (0.32-4.0)
[2023-12-19 13:38] LABS: Appearance Urine Cloudy; Color Urine Yellow; Glucose Urine UA Negative (Negative); Leukocyte Esterase Urine Moderate (2+) (Negative); Nitrite Urine Positive (Negative); UMIC TRIGGER UACC YES; Urine Blood Negative (Negative); Urine Ketones Negative (Negative); Urine Protein 30 (1+) mg/dL (Neg-Trace)
--- NOTE | 2023-12-19 13:42 | PC.NURSE ---
PER PT - AT 0730 PT STATES THAT HE WAS HAVING STROKE LIKE SX - APHASIA, CONFUSION, NAUSEA, INDIGESTION, MILD CHEST PAIN, DOUBLE VISION, FATIQUE. PT STATES THAT AT THIS TIME HE IS HAVING MILD CONFUSION AND FATIQUE. PROVIDER AWARE. WILL CONTINUE TO MONITOR.
[2023-12-19 13:43] LABS: Bacteria Urine 4+ (None Seen); RBC Urine 0-2 /HPF (0-2); UACC Culture Trigger YES; WBC Urine >50 /HPF (0-5)
[2023-12-19 13:49] LABS: Amphetamine Screen Urine Not Detected (Not Detect); Barbiturates, Urine Not Detected (Not Detect); Benzodiazepines Screen Urine Not Detected (Not Detect); Buprenorphine Scr Not Detected (Not Detect); Cannabinoid Screen Urine Not Detected (Not Detect); Cocaine Screen Urine Not Detected (Not Detect); Fentanyl, urine Not Detected (Not Detect); Methadone Screen, Urine Not Detected (Not Detect); Opiate Screen Urine Not Detected (Not Detect); Oxycodone Screen Urine Not Detected (Not Detect); Phencyclidine Screen Urine Not Detected (Not Detect)
--- NOTE | 2023-12-19 14:09 | ED_ITS ---
HPI - Neuro Symptoms/Deficit General Chief Complaint: Neuro Symptoms/Deficit Stated Complaint: Chest pain/Confusion/Double vision Time Seen by Provider: 12/19/23 13:55 Source: patient and family Mode of arrival: ambulatory Limitations: no limitations History of Present Illness HPI Narrative: a 68-year-old male with history of bladder cancer, history of insomnia that has been treated recently with gabapentin, last known to be normal was 230 in the morning when he woke up from sleep then he wake up in the morning patient felt disoriented, confused, having difficulty expressing himself and difficulty to find the words, blurry vision, mild headache symptoms persist for 1 hour then fully resolved while in the emergency department, patient during the interview has no symptoms, patient with bladder cancer has chronic urostomy. Initial UA is consistent with UTI urine was sent from the Tate bag will try to collect urine from the urostomy bag that was changed yesterday by the patient and repeat UA. Related Data Home Medications ?Medication ?Instructions ?Recorded ?Confirmed albuterol sulfate 90 mcg/actuation 2 puff PO Q6H PRN Wheezing 04/07/21 12/07/21 aerosol inhaler allopurinol 300 mg tablet 1 tab PO DAILY 04/07/21 12/07/21 aspirin 81 mg tablet,delayed 81 mg PO DAILY 04/07/21 12/07/21 release (Berta Low Dose Aspirin) cholecalciferol (vitamin D3) 50 50 mcg PO DAILY 04/07/21 12/07/21 mcg (2,000 unit) capsule (Vitamin D3) lisinopril 40 mg tablet 1 tab PO DAILY 04/07/21 12/07/21 pravastatin 40 mg tablet 1 tab PO DAILY 04/07/21 12/07/21 propranolol 60 mg capsule,24 1 cap PO DAILY 04/07/21 12/07/21 hr,extended release omeprazole 20 mg capsule,delayed 20 mg PO QAM 12/07/21 12/07/21 release alprazolam 1 mg tablet 0.5 mg PO DAILY PRN 02/08/22 Previous Rx's ?Medication ?Instructions ?Recorded gabapentin 100 mg capsule See Rx Instructions PO BEDTIME 30 02/08/22 days #90 caps magnesium oxide 400 mg PO BEDTIME 30 days #30 tabs 03/04/22 cefuroxime axetil 500 mg tablet 500 mg PO BID #14 tabs 12/19/23 Allergies Allergy/AdvReac Type Severity Reaction Status Date / Time NSAIDS (Non-Steroidal AdvReac Intermediate Gastrointestinal Verified 12/19/23 11:33 Anti-Inflamma Upset Review of Systems 2 Review of Systems: all other systems are reviewed and are negative Constitutional: Reports as per HPI and Reports no additional constitutional complaints Eyes: Reports as per HPI and Reports no additional eye complaints Reports system reviewed and no additional complaints, except as documented Cardiovascular: Reports as per HPI and Reports no additional cardiovascular complaints Respiratory: Reports as per HPI and Reports no additional respiratory complaints Gastrointestinal: Reports as per HPI and Reports no additional gastrointestinal complaints Genitourinary: Reports no additional female genitourinary complaints Musculoskeletal: Reports no additional musculoskeletal complaints Skin/Breast: Reports system reviewed and no additional complaints, except as docu Psychiatric: Reports no additional psychiatric complaints Endocrine: Reports no additional endocrine complaints Hematologic/Lymphatic: Reports no additional hematologic/lymphatic complaints Allergic/Immunologic: Reports no additional allergic/immunologic complaints Reports system reviewed and no additional complaints, except as documented and Reports Abnormal speech present [facility] Past Medical History Medical History COVID-19 vaccine series completed Asthma Prostate cancer Bladder cancer Essential tremor Sleep apnea Gout Elevated cholesterol HTN (hypertension) Surgical History Hx of appendectomy Hx of resection of small bowel Hx of prostatectomy Hx of cystoscopy Hx of cystoscopy H/O colonoscopy Family History Family History Father Lung cancer Hypertension Mother No problems noted. Social History Social History Household Members: Spouse Are you a primary senior care manager to a significant other at home: No Do you presently have visiting nurse or other home services: No Alcohol intake: current Alcohol intake frequency: a few times a month Patient Tobacco Use Status: Former Tobacco user Quit Date: 1999 Tobacco use type: Cigarette Smoked in Last 30 Days: No Use of substances other than those prescribed or required for medical reasons: No Advance Directives: No Advance Directives Information Provided: Yes Do you have a plan to hurt others: No Plan Current occupational status: retired Physical Exam 2 Vital Signs: Vital Signs: Last Vital Signs Temp 97.7 F 05/07/24 18:51 Pulse 63 12/19/23 18:51 Resp 18 12/19/23 18:51 BP 144/65 H 12/19/23 18:51 Pulse Ox 96 12/19/23 18:51 O2 Del Method Room Air 12/19/23 18:51 BMI result Body Mass Index 47.3 Vital signs have been reviewed and appear to be correct. Blood pressure elevated. Heart rate normal. Respiratory rate normal. Temperature normal. Oxygen saturation normal. Appearance: Alert. Oriented X3. No acute distress. Head: Normal external exam. Normocephalic. Atraumatic. No Morales signs noted. No raccoon eyes noted Eyes: PERRLA. EOMI. Conjunctiva and sclera normal. Eyelids normal. ENT: TM's Normal. Pharynx normal. Uvula midline. Moist mucous membranes. No trismus noted. No drooling noted. No muffled voice noted. Neck: Normal inspection. Neck supple. FROM. No adenopathy. Thyroid Normal. No meningeal signs. No neck mass noted. CVS: Normal heart rate and rhythm. Heart sound normal. No murmurs noted. Pulses normal throughout. Respiratory: No respiratory distress. Painless inspiration. Breath sounds normal. No wheezes/rales/rhonchi noted. Chest nontender. No accessory muscle usage noted or decreased air movement noted. Abdomen: Soft and nontender. Bowel sounds normal in all 4 quadrants. No distention noted. No organomegaly noted. No visible injury noted. Back: No CVA tenderness. Full range of motion noted. Skin: Skin warm and dry. Normal skin color. Normal skin turgor. No rashes/lesions/lacerations noted. Extremities: No lower extremity edema. Extremities exhibit normal range of motion. Extremities nontender. Neuro: Oriented X 3. Cranial nerve exam: II-XII are grossly intact No motor deficit. No sensory deficit. Reflexes normal. Course Course Course Narrative: This is a Rapid Medical Examination (RME) performed by Donnell Wright PA-C in triage. Full HPI, ROS, assessment and treatment plan per primary provider in the Main ED. 68 y/o male with history of morbid obesity, ROMIE on CPAP, insomnia, Velarde's esophagus, essential tremor who presents to the ER for evaluation of acute onset of confusion, double vision, nausea, mild aphasia and indigestion that started this morning when he woke up at 730. Blurred vision improved, nausea and indigestion persist. No weakness, numbness, tingling. Still feels speech is slow. In triage, hypertensive 174/76. AAO x3. Strength is equal and symmetrical. CN II-XII grossly intact. Steady gait. Out of stroke treatment window as patient's symptoms were present upon waking up. Plan: CT head, EKG, labs Reevaluation(s) Reevaluation #1: 68-year-old male with established diagnosis of insomnia on gabapentin woke up this morning feels disoriented and confused with blurry vision, symptoms resolved upon arrival to the ED. CT/CTA not consistent with acute CVA awaiting for MRI of the brain to confirm, however CTA is showing severe stenosis in the left posterior cerebral artery P2 segment which will have the patient follow-up with neurologist for this finding. I believe the neurological symptoms (confusion, disorientation, and aphasia) the patient had secondary to lack of sleep and gabapentin UTI patient with urostomy could be contaminated will start the patient on cefuroxime as an outpatient. MRI results still pending signed out to Dr. Mendez. Time: 20:51 Medications Administered Discontinued Medications Generic Name Dose Route Start Last Admin Trade Name Freq PRN Reason Stop Dose Admin Cefuroxime Axetil 500 mg 12/19/23 18:20 12/19/23 18:31 Cefuroxime Axetil 500 Mg Tablet PO 12/19/23 18:21 500 mg ONCE ONE Administration Iohexol 70 ml 12/19/23 15:46 12/19/23 15:46 Iohexol 350 Mg/Ml 100 Ml Infus..Btl IV 12/19/23 15:47 70 ml ONCE ONE Administration Medical Decision Making Differential Diagnosis Differential Diagnoses: The differential diagnosis associated with the presentation includes ( CVA, TIA, electrolyte derangement, severe anemia, ACS, UTI.) Admission/Observation Consideration of admission/observation: Escalation of care including admission/observation considered Lab Data MDM Lab Attestation statement: I reviewed the patient's lab results. 12/19/23 11:29 12/19/23 11:29 Labs: Lab Results 12/19/23 12/19/23 12/19/23 Range/Units 11:29 11:36 13:24 WBC 7.4 (4.8-10.8) X10*3/uL RBC 4.90 (4.60-5.80) X10*6/uL Hgb 15.2 (14.0-18.0) g/dl Hct 42.6 (42.0-52.0) % MCV 86.9 (80.0-98.0) fL MCH 31.0 (27.0-33.0) pg MCHC 35.7 (31.0-36.0) g/dl RDW 12.8 (11.0-16.0) % Plt Count 270 (160-400) X10*3/uL MPV 9.6 (9.4-12.4) fL Immature Gran % (Auto) 0.4 (0.0-0.4) % Neut % (Auto) 78.3 H (45-73) % Lymph % (Auto) 13.1 L (20-40) % [place] % (Auto) 5.0 (2-11) % Eos % (Auto) 2.4 (0-4) % Baso % (Auto) 0.8 (0-2) % Lymph # (Auto) 1.0 L (1.2-4.9) X10*3/uL [place] # (Auto) 0.4 (0.1-1.2) X10*3/uL Eos # (Auto) 0.2 (0.0-0.4) X10*3/uL Baso # (Auto) 0.1 (0.0-0.2) X10*3/uL Abs Immat Gran (auto) 0.03 (0.00-0.03) X10*3/uL Absolute Neuts (auto) 5.8 (2.0-8.3) x10*3/uL Absolute Nucleated RBC 0.000 (0.0-0.012) X10*3/uL Nucleated RBC % (auto) 0.0 (0.0-0.2) /100WBC PT 11.1 (11.1-13.3) SEC INR 0.9 (0.9-1.1) APTT 34.1 (26.0-36.8) SEC VBG pH 7.50 H (7.32-7.43) VBG pCO2 27 mmHg VBG pO2 120 mmHg VBG HCO3 22 (22-26) mmol/L VBG O2 Saturation 97.0 % VBG Base Excess 0.5 mmol/L Sodium 136 (135-145) mmol/L Potassium 4.3 (3.3-5.1) mmol/L Chloride 105 (96-108) mmol/L Carbon Dioxide 20 L (22-29) mmol/L Anion Gap 15 (12-20) BUN 18 H (9-16) mg/dL Creatinine 0.85 (0.5-1.4) mg/dL Estim Creat Clear Calc 132.8 Estimated GFR > 60 Random Glucose 134 H (60-115) mg/dL Calcium 9.7 (8.4-10.2) mg/dL Magnesium 1.5 L (1.6-2.6) mg/dL Total Bilirubin 0.5 (0.0-1.0) mg/dL Direct Bilirubin 0.2 (0.0-0.5) mg/dL AST 22 (5-37) U/L ALT 29 (0-40) U/L Alkaline Phosphatase 76 (39-117) U/L Troponin I High Sens < 2.7 (<3.5-35.0) ng/L B-Natriuretic Peptide 27 (<100) pg/mL Total Protein 7.1 (6.5-8.0) g/dL Albumin 4.4 (3.5-5.0) g/dL Lipase 19 (8-78) U/L TSH 1.15 (0.32-4.0) uIU/mL Urine Color Yellow Urine Appearance Cloudy Urine pH 6.0 (5.0-9.0) Ur Specific [place] 1.020 (1.005-1.025) Urine Protein 30 (1+) H (Neg-Trace) mg/dL Urine Glucose (UA) Negative (Negative) mg/dL Urine Ketones Negative (Negative) mg/dL Urine Blood Negative (Negative) Urine Nitrite Positive H (Negative) Ur Leukocyte Esterase Moderate (2+) H (Negative) Urine RBC 0-2 (0-2) /HPF Urine WBC >50 H (0-5) /HPF Ur Squamous Epith Cells 3-5 (0-2) /HPF Urine Bacteria 4+ (None Seen) Hyaline Casts 3-5 (0-2) /LPF Urine Opiates Screen Not Detected (Not Detect) Ur Buprenorphine Scrn Not Detected (Not Detect) ng/mL Ur Oxycodone Screen Not Detected (Not Detect) ng/mL Urine Methadone Screen Not Detected (Not Detect) ng/mL Urine Fentanyl Screen Not Detected (Not Detect) Ur Barbiturates Screen Not Detected (Not Detect) Ur Phencyclidine Scrn Not Detected (Not Detect) Ur Amphetamines Screen Not Detected (Not Detect) U Benzodiazepines Scrn Not Detected (Not Detect) Urine Cocaine Screen Not Detected (Not Detect) U Marijuana (THC) Screen Not Detected (Not Detect) Ethyl Alcohol < 10 mg/dL 12/19/23 Range/Units 14:17 WBC (4.8-10.8) X10*3/uL RBC (4.60-5.80) X10*6/uL Hgb (14.0-18.0) g/dl Hct (42.0-52.0) % MCV (80.0-98.0) fL MCH (27.0-33.0) pg MCHC (31.0-36.0) g/dl RDW (11.0-16.0) % Plt Count (160-400) X10*3/uL MPV (9.4-12.4) fL Immature Gran % (Auto) (0.0-0.4) % Neut % (Auto) (45-73) % Lymph % (Auto) (20-40) % [place] % (Auto) (2-11) % Eos % (Auto) (0-4) % Baso % (Auto) (0-2) % Lymph # (Auto) (1.2-4.9) X10*3/uL [place] # (Auto) (0.1-1.2) X10*3/uL Eos # (Auto) (0.0-0.4) X10*3/uL Baso # (Auto) (0.0-0.2) X10*3/uL Abs Immat Gran (auto) (0.00-0.03) X10*3/uL Absolute Neuts (auto) (2.0-8.3) x10*3/uL Absolute Nucleated RBC (0.0-0.012) X10*3/uL Nucleated RBC % (auto) (0.0-0.2) /100WBC PT (11.1-13.3) SEC INR (0.9-1.1) APTT (26.0-36.8) SEC VBG pH (7.32-7.43) VBG pCO2 mmHg VBG pO2 mmHg VBG HCO3 (22-26) mmol/L VBG O2 Saturation % VBG Base Excess mmol/L Sodium (135-145) mmol/L Potassium (3.3-5.1) mmol/L Chloride (96-108) mmol/L Carbon Dioxide (22-29) mmol/L Anion Gap (12-20) BUN (9-16) mg/dL Creatinine (0.5-1.4) mg/dL Estim Creat Clear Calc Estimated GFR Random Glucose (60-115) mg/dL Calcium (8.4-10.2) mg/dL Magnesium (1.6-2.6) mg/dL Total Bilirubin (0.0-1.0) mg/dL Direct Bilirubin (0.0-0.5) mg/dL AST (5-37) U/L ALT (0-40) U/L Alkaline Phosphatase (39-117) U/L Troponin I High Sens (<3.5-35.0) ng/L B-Natriuretic Peptide (<100) pg/mL Total Protein (6.5-8.0) g/dL Albumin (3.5-5.0) g/dL Lipase (8-78) U/L TSH (0.32-4.0) uIU/mL Urine Color Yellow Urine Appearance Cloudy Urine pH 6.0 (5.0-9.0) Ur Specific [place] 1.015 (1.005-1.025) Urine Protein Trace (Neg-Trace) mg/dL Urine Glucose (UA) Negative (Negative) mg/dL Urine Ketones Negative (Negative) mg/dL Urine Blood Trace H (Negative) Urine Nitrite Positive H (Negative) Ur Leukocyte Esterase Large (3+) H (Negative) Urine RBC 0-2 (0-2) /HPF Urine WBC >50 H (0-5) /HPF Ur Squamous Epith Cells 0-2 (0-2) /HPF Urine Bacteria 4+ (None Seen) Hyaline Casts 3-5 (0-2) /LPF Urine Opiates Screen (Not Detect) Ur Buprenorphine Scrn (Not Detect) ng/mL Ur Oxycodone Screen (Not Detect) ng/mL Urine Methadone Screen (Not Detect) ng/mL Urine Fentanyl Screen (Not Detect) Ur Barbiturates Screen (Not Detect) Ur Phencyclidine Scrn (Not Detect) Ur Amphetamines Screen (Not Detect) U Benzodiazepines Scrn (Not Detect) Urine Cocaine Screen (Not Detect) U Marijuana (THC) Screen (Not Detect) Ethyl Alcohol mg/dL Independent Interpretation I performed an independent interpretation of an: CT Scan ( head/ Head and neck CTA:Severe stenosis in the left posterior cerebral artery P2 segment. No proximal vessel occlusion. ) Radiology Impression Discussion of test interpretation with radiology: I have reviewed the radiologist's reading. NIH Stroke Scale Time: 14:17 Level of Consciousness: Alert Level of Consciousness Questions: Answers both questions correctly Level of Consciousness Commands: Performs both tasks correctly Best Gaze: Normal Visual: No visual loss Facial Palsy: Normal Motor Arm (Right): No drift Motor Arm (Left): No drift Motor Leg (Right): No drift Motor Leg (Left): No drift Limb Ataxia: Absent Sensory: Normal Best Language: No aphasia Dysarthia: Normal Extinction and Inattention: No abnormality Score: 0 Discharge Plan Discharge Clinical Impression: Acute UTI, Insomnia Patient Disposition: Still a Patient Instructions: Urinary Tract Infection in Men (DC) Prescriptions: New cefuroxime axetil 500 mg tablet 500 mg PO BID Qty: 14 0RF No Action magnesium oxide 400 mg magnesium tablet 400 mg PO BEDTIME 30 Days Qty: 30 2RF pravastatin 40 mg tablet 1 tab PO DAILY propranolol 60 mg capsule,extended release 24 hr 1 cap PO DAILY aspirin [Berta Low Dose Aspirin] 81 mg Tablet,Delayed Release (Dr/Ec) 81 mg PO DAILY allopurinol 300 mg tablet 1 tab PO DAILY albuterol sulfate 90 mcg/actuation HFA aerosol inhaler 2 puff PO Q6H PRN (Reason: Wheezing) lisinopril 40 mg tablet 1 tab PO DAILY cholecalciferol (vitamin D3) [Vitamin D3] 50 mcg (2,000 unit) Capsule 50 mcg PO DAILY omeprazole 20 mg capsule,delayed release(DR/EC) 20 mg PO QAM alprazolam 1 mg tablet 0.5 mg PO DAILY PRN gabapentin 100 mg capsule See Rx Instructions PO BEDTIME 30 Days Qty: 90 2RF Rx Instructions: 1-3 capsules PO bedtime; Referrals: Donald Barnett DO [Primary Care Provider] - Virgil Maria MD [Physician] - Print Language: Faroese
[2023-12-19 14:23] LABS: Appearance Urine Cloudy; Color Urine Yellow; Glucose Urine UA Negative (Negative); Leukocyte Esterase Urine Large (3+) (Negative); Nitrite Urine Positive (Negative); Specific Gravity - Urine 1.015 (1.005-1.025); UMIC TRIGGER UACC YES; Urine Blood Trace (Negative); Urine Ketones Negative (Negative); Urine Protein Trace mg/dL (Neg-Trace)
[2023-12-19 14:29] LABS: Bacteria Urine 4+ (None Seen); RBC Urine 0-2 /HPF (0-2); Squamous Epithelial Cell Urine 0-2 /HPF (0-2); UACC Culture Trigger YES; WBC Urine >50 /HPF (0-5)
[2023-12-19] MEDS: iohexoL 350 MG/ML 100 ML INFUS..BTL 70 ML IV (15:46)
[2023-12-19] MEDS: cefuroxime axetiL 500 MG TABLET PO (18:31)
== END 2023-12-19 22:19 | disposition home or self-care (01) ==
PROVIDERS: Emergency Medicine; Physician Assistant; Emergency Provider Student in an Organized Health Care Education/Training Program; PCP Internal Medicine
DX: N39.0 Urinary tract infection, site not specified (principal); G47.00 Insomnia, unspecified; I66.22 Occlusion and stenosis of left posterior cerebral artery; I10 Essential (primary) hypertension
CPT/HCPCS: 36415; 70450; 70496; 70498; 70551; 80048; 80076; 80307; 81001; 82803; 83690; 83735; 83880; 84443; 84484; 85025; 85610; 85730; 87086; 93005; 99285; Q9967

== ENCOUNTER → 2023-12-19 11:17 | Outpatient (BNV) | payer MEDICARE, SELFPAY | PROVIDERS: Emergency Provider Emergency Medicine; PCP Internal Medicine; Visit Provider Internal Medicine Cardiovascular Disease | DX: R07.9 Chest pain, unspecified (principal) | CPT/HCPCS: 93010 ==

== ENCOUNTER 2024-01-18 14:53 | Outpatient (AMB) | payer MEDICARE, SELFPAY ==
[2024-01-18 15:08] VITALS: PULSE 78; O2SAT 94; BMI 46.8
--- NOTE | 2024-01-18 15:08 | A.OFFVIS_ITS ---
Vital Signs 01/18/24 15:08 Height 6 ft Weight 345 lb BMI 46.8 Pulse 78 Pulse Source Pulse Oximeter Pulse Oximetry (%) 94 Oxygen Delivery Method Room Air Intake Visit Reasons: Asthma Configuration Consultant Required: No Allergies NSAIDS (Non-Steroidal Anti-Inflamma Adverse Reaction (Intermediate, Verified 01/18/24 15:09) Gastrointestinal Upset HPI Comments Details: The patient is here for pulmonary evaluation. The patient is a 68-year-old gentleman with a known his obstructive sleep apnea presenting with worsening asthma symptoms. For many years he has been evaluated for his respiratory status. He has responded very well to Flovent in the past along with albuterol. Although Flovent is no longer available and he did get a prescription for Arnuity. Does not feel like the Arnuity is working the same way. The patient states that his main triggers are the heat humidity and the smaller part ago matter air pollution. [place]. The worst time for him was when we had well [place] from [place] and he has significant respiratory symptoms. He does use his rescue inhaler more than twice a week. The patient also to note did have a sleep study demonstrating significant hypoxia. He did have mild sleep apnea. Patient did try CPAP in did not tolerate that. The patient is concerned also because his pulse ox tends to be on the low side typically 92-93% when he checks. He may have a component of hyperventilation syndrome. Will plan to review his PFTs when he comes back. The patient also will have an overnight oximetry to address any evidence of any nocturnal hypoxia. [facility] Medical History (Updated 01/19/24 @ 00:24 by Sanford Fuentes MD) Asthma-COPD overlap syndrome COVID-19 vaccine series completed Asthma Prostate cancer Bladder cancer Essential tremor Sleep apnea Gout Elevated cholesterol HTN (hypertension) Surgical History Hx of appendectomy Hx of resection of small bowel Hx of prostatectomy Hx of cystoscopy Hx of cystoscopy H/O colonoscopy Family History Father Lung cancer Hypertension Mother No problems noted. Social History Household Members: Spouse Are you a primary client care coordinator to a significant other at home: No Do you presently have visiting nurse or other home services: No Alcohol intake: current Alcohol intake frequency: a few times a month Patient Tobacco Use Status: Former Tobacco user Tobacco use type: Cigarette Current occupational status: retired Review of Systems Const Denies fever(s) Eyes Reports no additional complaints ENT Reports no additional complaints Card Denies chest pain and Reports dyspnea on exertion Resp Reports dyspnea on exertion and Reports wheezing GI Reports no additional complaints Musc Reports no additional complaints Skin/Breast Denies rash Aller/Immun Reports wheezing Physical Exam Vital Signs: Last Vital Signs Pulse 78 01/18/24 15:08 Pulse Ox 94 01/18/24 15:08 Oxygen Delivery Method Room Air 01/18/24 15:08 BMI result Body Mass Index 46.8 Const General: cooperative and comfortable Nutritional Appearance: obese Orientation/consciousness: patient oriented x3 Limitations: no limitations Neck Neck: Yes full ROM and Yes supple Chest Chest palpation & inspection: normal inspection of the chest Resp Effort & Inspection: normal respiratory effort and able to speak in complete sentences Auscultation: diminished lung sounds Neuro General: patient oriented x3 Psych Appearance: grossly normal Mental Status: mental status grossly normal Speech and movement: Normal speech and movement present Affect: normal affect Assessment & Plan Assessment & Plan (1) Asthma-COPD overlap syndrome: Code(s): J44.89 - Other specified chronic obstructive pulmonary disease Category: Medical (2) Insomnia: Code(s): G47.00 - Insomnia, unspecified Category: Medical Qualifiers: Insomnia type: primary Qualified Code(s): F51.01 - Primary insomnia Plan Start Dulera BID , ok to use as needed ESMER as needed overnight oximetry PFTs F/U 2-3 months Orders: Orders Overnight Pulse Oximetry 01/18/24 J44.89 - Other specified chronic obstructive pulmonary disease PFT pulmonary function test Today J44.89 - Other specified chronic obstructive pulmonary disease Medications: New mometasone-formoterol 200-5 mcg/actuation (Dulera) 2 puffs inhalation Q12H 30 days 13 grams 11RF Coding Level of Care Code New Pt Level 4 (06996) Diagnoses Asthma-COPD overlap syndrome J44.89 Primary insomnia F51.01 Insomnia type: primary Time Spent (min) 40
== END 2024-01-18 15:42 | disposition home or self-care (01) ==
PROVIDERS: PCP Internal Medicine; Visit Provider Hospitalist
DX: J44.89 Other specified chronic obstructive pulmonary disease (principal); F51.01 Primary insomnia
CPT/HCPCS: 99204

== ENCOUNTER → 2024-01-18 14:53 | Outpatient (BNVA) | payer MEDICARE, SELFPAY | PROVIDERS: PCP Internal Medicine; Visit Provider Hospitalist | DX: J44.89 Other specified chronic obstructive pulmonary disease (principal); F51.01 Primary insomnia | CPT/HCPCS: 99202 ==

== ENCOUNTER → 2024-01-19 07:58 | Outpatient (REF) | payer MEDICARE, SELFPAY ==
--- NOTE | 2024-01-19 08:01 | CA_ITS ---
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 Normal LV ejection fraction 60 65% with mild LVH with grade 1 diastolic dysfunction 2. Mildly dilated right ventricle with normal contractile function 3. Normal cardiac valvular Doppler 4. Normal RV systolic pressure 5. Mildly dilated ascending aorta 3.7 cm 6. No gross pericardial effusion Findings Left Ventricle Normal left ventricular size and systolic function. There is mildly increased left ventricular wall thickness. The visually estimated ejection fraction is between 60-65%. Spectral Doppler is indicative of an impaired relaxation filling pattern. E/E prime ratio is <8, consistent with normal filling pressures. Evidence suggests grade I (mild) diastolic dysfunction. Right Ventricle Mildly increased right ventricular cavity size. There is normal right ventricular systolic function. Atria The left atrium is likely dilated. Interatrial shunt cannot be excluded. The right atrium is normal in size. Aortic Valve Normal aortic valve structure and function. There is no aortic valve stenosis. There is no aortic valve regurgitation. Mitral Valve Normal mitral valve structure and function. There is trace mitral valve regurgitation. There is no mitral valve stenosis. Pulmonic Valve The pulmonic valve is likely normal. Tricuspid Valve Normal tricuspid valve structure. There is trace tricuspid valve regurgitation. The right ventricular systolic pressure is normal. The right ventricular systolic pressure is 18 mmHg. Normal right atrial pressure. There is no evidence of pulmonary hypertension. Great Vessels The pulmonary artery was not well visualized. There is mild dilatation of the ascending aorta measuring 3.70 cm. Venous The inferior vena cava is normal in size and collapses greater than 50% with inspiration. Pericardium/Pleural There is no evidence of pericardial effusion. Prior Study Comparison No prior study available for comparison. Measurements 2D Linear Measurements IVSd: 1.32 0.6-0.9/0.6-1.0 cm LVIDd: 5.88 3.9-5.3/4.2-5.9 cm LVIDd Index: 2.19 2.4-3.2/2.2-3.1 cm/m2 LVIDs: 3.55 2.0-3.6 cm LVPWd: 1.33 0.7-1.1 cm Ao Root: 3.90 2.1-3.5 cm LA Diam: 5.00 2.7-3.8/3.0-4.0 cm LAIDs Index: 1.86 1.5-2.3 cm/m2 LV Mass: 434.05 67-162/88-224 g LV Mass Index: 161.36 43-95/49-115 g/m2 LVOT Diam: 2.20 3.0+(-)1.3 cm 2D Systolic Function EF 4C: 61.10 >55% EF 2C: 57.00 >55% EF BiP: 59.00 >55% Mitral Valve MV Pk E: 0.54 MV PK A: 0.86 MV Decel Time: 391.00 E/A: 0.60 E'Lateral: 7.29 E'Medial: 6.74 E/E' Med: 8.00 E/E' Lat: 7.40 PHT: 114.00 MVA PHT: 1.93 Decel [place]: 1.38 Aortic Valve AoV Pk Gavino: 1.56 AoV Mn Gavino: 0.97 AoV VTI: 0.34 AoV Pk Grad: 10.00 Aov Mn Grad: 5.00 WESLEY Cont.VTI: 2.60 LVOT LVOT Pk Gavino: 1.01 LVOT Mn Gavino: 0.65 LVOT VTI: 0.23 LVOT Pk Grad: 4.00 LVOT Mn Grad: 2.00 LVOT Diam: 2.20 LVOT Area: 3.80 Diastolic Function MV Pk E: 0.54 MV Pk A: 0.86 E/A: 0.60 E'Medial: 6.74 E/E' Med: 8.00 E' Laterial: 7.29 E/E' Lat: 7.40 Right Ventricle TAPSE (mm): 25.00 TVS' Gavino: 12.00 Tricuspid Valve TR Pk Gavino: 1.95 TR Pk Grad: 15.00 RA Press: 3.00 RVSP: 18.00 Great Vessels Aorta Ao Root-2D: 3.90 2.0-3.7 cm Ao Asc: 3.70 2.1-3.4 cm Pulmonary Valve PV Pk Gavino: 1.13 Peak PV Grad: 5.00 Updated in Other Vendor System with Status of Final Duy Mitchell MD electronically signed on 01/19/2024 5:19:35 PM with status of Final
== END ==
LOC: HO.CARD 07:58
PROVIDERS: PCP Internal Medicine; Visit Provider Internal Medicine
DX: I10 Essential (primary) hypertension (principal); I25.10 Atherosclerotic heart disease of native coronary artery without angina pectoris
CPT/HCPCS: 93306

== ENCOUNTER → 2024-01-19 08:01 | Outpatient (BNV) | payer MEDICARE, SELFPAY | PROVIDERS: PCP Internal Medicine; Visit Provider Internal Medicine Cardiovascular Disease | DX: I51.89 Other ill-defined heart diseases (principal) | CPT/HCPCS: 93306 ==

== ENCOUNTER 2024-03-19 09:15 | Outpatient (AMB) | payer MEDICARE, SELFPAY ==
[2024-03-19 09:20] VITALS: PULSE 70; O2SAT 97; BMI 46.8
--- NOTE | 2024-03-19 09:20 | A.OFFVIS_ITS ---
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 For many years he has been evaluated for his respiratory status. He has responded very well to Flovent in the past along with albuterol. Although Flovent is no longer available and he did get a prescription for Arnuity. Does not feel like the Arnuity is working the same way. The patient states that his main triggers are the heat humidity and the smaller part ago matter air pollution[place]. The worst time for him was when we had [place] and he has significant respiratory symptoms. He does use his rescue inhaler more than twice a week. The patient also to note did have a sleep study demonstrating significant hypoxia. He did have mild sleep apnea. Patient did try CPAP in did not tolerate that. The patient is concerned also because his pulse ox tends to be on the low side typically 92-93% when he checks. He may have a component of hyperventilation syndrome. Will plan to review his PFTs when he comes back. The patient also will have an overnight oximetry to address any evidence of any nocturnal hypoxia. 03/19/2024 the patient is here for a pulmonary follow-up visit. Overall the patient has been doing well. He actually been sleeping better. He is waking up rested. He is sleeping around 7-8 hours straight which is a big change for him. As far as his inhaler. 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 Has not used it as of yet. Has not required his rescue inhaler either. Overall he feels better. He did not have his PFTs either because we are missing a respiratory therapist will have to reschedule that. He did undergo the overnight oximetry. He did spend 12 minutes below 88%. He is going to work on positional therapy sleep on his side will go ahead and repeat that in the next 4 months or so. If the patient continues to spend more than 5 minutes below 88% will really consider oxygen. Will follow-up in 4-6 month after his PFTs and overnight. COUNTS INCLUDE 234 BEDS AT THE [facility] Medical History (Updated 01/19/24 @ 00:24 by Sanford Fuentes MD) Asthma-COPD overlap syndrome COVID-19 vaccine series completed Asthma Prostate cancer Bladder cancer Essential tremor Sleep apnea Gout Elevated cholesterol HTN (hypertension) Surgical History Hx of appendectomy Hx of resection of small bowel Hx of prostatectomy Hx of cystoscopy Hx of cystoscopy H/O colonoscopy Family History Father Lung cancer Hypertension Mother No problems noted. Social History Household Members: Spouse Are you a primary resident care aide to a significant other at home: No Do you presently have visiting nurse or other home services: No Alcohol intake: current Alcohol intake frequency: a few times a month Patient Tobacco Use Status: Former Tobacco user Tobacco use type: Cigarette Current occupational status: retired Review of Systems Const Denies fever(s) Eyes Reports no additional complaints ENT Reports no additional complaints Card Denies chest pain and Reports dyspnea on exertion Resp Reports dyspnea on exertion and Denies wheezing GI Reports no additional complaints Musc Reports no additional complaints Skin/Breast Denies rash Aller/Immun Denies wheezing Physical Exam Vital Signs: Last Vital Signs Pulse 70 03/19/24 09:20 Pulse Ox 97 03/19/24 09:20 Oxygen Delivery Method Room Air 03/19/24 09:20 BMI result Body Mass Index 46.8 Const General: cooperative and comfortable Nutritional Appearance: obese Orientation/consciousness: patient oriented x3 Limitations: no limitations Neck Neck: Yes full ROM and Yes supple Chest Chest palpation & inspection: normal inspection of the chest Resp Effort & Inspection: normal respiratory effort and able to speak in complete sentences Auscultation: diminished lung sounds Neuro General: patient oriented x3 Psych Appearance: grossly normal Mental Status: mental status grossly normal Speech and movement: Normal speech and movement present Affect: normal affect Assessment & Plan Assessment & Plan (1) Asthma-COPD overlap syndrome: Code(s): J44.89 - Other specified chronic obstructive pulmonary disease Category: Medical (2) Insomnia: Code(s): G47.00 - Insomnia, unspecified Category: Medical Qualifiers: Insomnia type: primary Qualified Code(s): F51.01 - Primary insomnia Plan Dulera BID , ok to use as needed ESMER as needed overnight oximetryrepeat in 4 months PFTs with next visit F/U 4-6 months Orders: Orders Overnight Pulse Oximetry 4 Months J44.89 - Other specified chronic obstructive pulmonary disease Coding Level of Care Code Est Pt Level 4 (17631) Diagnoses Asthma-COPD overlap syndrome J44.89 Primary insomnia F51.01 Insomnia type: primary Time Spent (min) 16
== END 2024-03-19 09:37 | disposition home or self-care (01) ==
PROVIDERS: PCP Internal Medicine; Visit Provider Hospitalist
DX: J44.89 Other specified chronic obstructive pulmonary disease (principal); F51.01 Primary insomnia
CPT/HCPCS: 99214

== ENCOUNTER → 2024-03-19 09:15 | Outpatient (BNVA) | payer MEDICARE, SELFPAY | PROVIDERS: PCP Internal Medicine; Visit Provider Hospitalist | DX: G47.30 Sleep apnea, unspecified (principal); J45.909 Unspecified asthma, uncomplicated; J44.89 Other specified chronic obstructive pulmonary disease; F51.01 Primary insomnia | CPT/HCPCS: 99212 ==

== ENCOUNTER 2024-07-04 08:52 | Outpatient (REF) | payer MEDICARE, SELFPAY ==
--- NOTE | 2024-07-04 08:59 | PFT_ITS ---
Indication: Asthma Spirometry [ FEV1 to FVC 70% predicted pre bronchodilators and 72% predicted post bronchodilators. FEV1 3.48 L; FVC 4.81 L. no significant response to bronchodilators noted. Maximum voluntary ventilation 105% predicted] Lung Volumes [ total lung capacity 90% predicted] Diffusion Capacity [ DLCO 100% predicted] comparisons [ none] Interpretation [ there is a reversible obstructive ventilatory defect consistent with a diagnosis of asthma. No significant response to bronchodilators noted. Normal maximum voluntary ventilation. Lung volumes and diffusing capacity within normal limits. Clinical correlation warranted.] MTDD
== END 2024-07-04 08:53 | disposition home or self-care (01) ==
LOC: HO.RESP 08:52
PROVIDERS: PCP Internal Medicine; Visit Provider Hospitalist
DX: J44.89 Other specified chronic obstructive pulmonary disease (principal)
CPT/HCPCS: 94010; 94640; 94727; 94729

== ENCOUNTER → 2024-07-04 08:59 | Outpatient (BNV) | payer MEDICARE, SELFPAY | PROVIDERS: PCP Internal Medicine; Visit Provider Hospitalist | DX: J44.89 Other specified chronic obstructive pulmonary disease (principal) | CPT/HCPCS: 94060; 94727; 94729 ==

== ENCOUNTER 2024-09-25 14:42 | Outpatient (AMB) | payer MEDICARE, SELFPAY ==
--- NOTE | 2024-09-25 14:44 | A.OFFPC_ITS ---
Vital Signs 09/25/24 15:02 Height 5 ft 10 in BP 172/100 H Blood Pressure Location Lt brachial Pulse 62 Pulse Source Pulse Oximeter Temp 97 F Pulse Oximetry (%) 99 Intake Visit Reasons: Follow up ER Visit Intake Note: fell on the ice hurt left knee still having issues with his right and has a cyst on right wrist Allergies NSAIDS (Non-Steroidal Anti-Inflamma Adverse Reaction (Intermediate, Verified 09/27/24 15:49) Gastrointestinal Upset Medication List - Last Reconciled 09/27/24 by Brandon Daugherty MD albuterol sulfate 90 mcg/actuation 2 puffs PO Q6H PRN allopurinol 1 tab PO DAILY alprazolam 0.5 mg (1/2 x 1 mg) PO DAILY PRN aspirin (Berta Low Dose Aspirin) 81 mg PO DAILY cholecalciferol (vitamin D3) (Vitamin D3) 50 mcg PO DAILY gabapentin mg PO lisinopril 40 mg PO DAILY mometasone-formoterol 200-5 mcg/actuation (Dulera) 2 puffs inhalation Q12H 30 days omeprazole 20 mg PO QAM pravastatin 40 mg PO DAILY 90 days propranolol 20 mg PO BID PFSH Medical History (Updated 09/27/24 @ 15:50 by Brandon Daugherty MD) Asthma-COPD overlap syndrome COVID-19 vaccine series completed Asthma Prostate cancer Bladder cancer Essential tremor Sleep apnea Gout Elevated cholesterol HTN (hypertension) Surgical History Hx of appendectomy Hx of resection of small bowel Hx of prostatectomy Hx of cystoscopy Hx of cystoscopy H/O colonoscopy Family History Father Lung cancer Hypertension Mother No problems noted. Social History Household Members: Spouse Are you a primary resident care manager rn to a significant other at home: No Do you presently have visiting nurse or other home services: No Alcohol intake: current Alcohol intake frequency: a few times a month Patient Tobacco Use Status: Former Tobacco user Tobacco use type: Cigarette Current occupational status: retired Physical exam (Primary Care) Vital Signs: Last Vital Signs Temp 97 F 09/25/24 15:02 Pulse 62 09/25/24 15:02 BP 172/100 H 09/25/24 15:02 Pulse Ox 99 09/25/24 15:02 Tobacco/Smoking Status: Tobacco use Status Patient Tobacco Use Status Former Tobacco user 09/25/24 14:45 Tobacco use type Cigarette 09/25/24 14:45 Coding Level of Care Code New Pt Level 4 (48355) Complex EM visit Add On G2211 Diagnoses HTN (hypertension) I10 Assessment & Plan Assessment & Plan (1) HTN (hypertension): Code(s): I10 - Essential (primary) hypertension Category: Medical Plan: BP is elevated. Has a lot of pain symptoms in the knee. Was advised to check his bp at home and report the results. Plan History of Present Illness The patient is a 69-year-old male presenting with concerns regarding blood pressure and evaluation following a recent knee injury and urinary symptoms. Approximately nine days prior to the visit, the patient experienced a fall re sulting in significant swelling, rigidity, tenderness, and redness around his left knee. Subsequent to the fall, on Monday night, the patient observed dark, colon-colored urine and was concerned about rhabdomyolysis. Initial blood tests ruled out rhabdomyolysis; however, a urinalysis revealed a urinary tract infection. Further imaging via X-rays showed no fractures in the left knee, and a follow-up ultrasound indicated a probable ruptured Molina's cyst without evidence of venous thrombosis. The patient is compliant with his lisinopril 40 mg medication but noticed his blood pressure had increased significantly, measuring in a higher range. He has not been monitoring his blood pressure consistently since the injury. Additionally, the patient reported a history of bladder cancer, for which he underwent a radical cystoprostatectomy and has an ileostomy. In the past, the patient developed pain radiating up his forearm, which has mostly diminished but was identified as a ganglion cyst on a tendon. Social History - The patient is retired. 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 - The patient uses a cane for mobility support. - His has noted mild swelling in his left ankle. Review of Systems - Musculoskeletal: Reports a popping sensation with movement in both knees, fol lowed by sharp, transient pain. - Neurological: Reports some discomfort and pain radiating up the forearm in the past. Physical Exam General: Appearance normal, both eyes and all related structures Nutritional Appearance: Well nourished Orientation/consciousness: Patient oriented x3 Limitations: Some discomfort with both knees, popping sensation and sharp but brief pain in knees Head: Normal to inspection Neck: Normal visual inspection Chest: Normal palpation of entire chest wall Respiratory: Normal respiratory effort Neurology: Patient oriented x3 Results - Labs: Urinalysis consistent with urinary tract infection. - Imaging: X-rays showing no fractures. Ultrasound indicating a probable ruptured Molina's cyst. Plan - Continue lisinopril 40 mg and monitor blood pressure at home for one week, with instructions to document readings. - Complete current antibiotic regimen for urinary tract infection as E. coli is susceptible to prescribed cephalexin. - No additional immediate diagnostics required for the knee; reassurance provided for probable Molina's cyst. - Follow-up scheduled in three months for ongoing management. - Additional care considerations for ganglion cyst include observational management unless symptoms worsen. Patient was informed and verbally consented to the use of an ambient scribe for clinic note documentation during this visit. Discussion Notes I discussed with the patient the current findings and management plan for his conditions. His urinary tract infection is being treated with cephalexin, to which the responsible organism, E. coli, is susceptible based on culture results. For his blood pressure, I advised closely monitoring home readings over the next week and to contact me if the readings remain elevated for further medication adjustments. Regarding the knee pain, I explained that the probable diagnosis of a ruptured Molina's cyst is consistent with his symptoms and imaging results, and it should improve over time. The ganglion cyst was identified as an incidental finding, and I advised there is no need for intervention unless it becomes symptomatic. The patient was reassured about the current plan, and we agreed on a follow-up in three months unless issues arise sooner. Patient Instructions - Monitor blood pressure at home daily for one week, record readings, and report if consistently high. - Complete the prescribed course of antibiotics for urinary tract infection. - Follow up in three months unless instructed otherwise or if conditions worsen. - Continue with regular use of assistive devices as needed for support. - Seek medical attention if knee swelling or pain escalates significantly or if there are any signs of infection. - Discuss any new symptoms or concerns with the physician at the scheduled follow-up. Medications: Changed From lisinopril 1 tab PO DAILY To lisinopril 40 mg PO DAILY 90 tabs 1RF
[2024-09-25 15:02] VITALS: BP 172/100; PULSE 62; TEMP 36.1; O2SAT 99
--- OUTSIDE RECORDS SUMMARY | 2024-09-25 15:55 | XMS_ITS | Patient Health Record ---
Author Organization [facility] Address [address] [place] [address] Care Team Providers Care Wet Inspector Optical Glass Name Role Phone Ericka (RETIRED) Donald JENNINGS Primary Care Provid er Unavailable Francisco Blackburn Jr Unavailable ALLERGIES Allergen (clinical drug ingredient) Drug/Non Drug Allergy documented on EMR Reaction Allergy Type Onset Date Status Non-steroidal anti-inflammatory agent (FN) NSAIDs really bad stomach upset Drug Allergy Active REASON FOR REFERRAL No Information MEDICATIONS Medication SIG (Take, Route, Frequency, Duration) Notes Start Date End Date Status Primidone 50 MG TAKE 1 TABLET ORALLY ONCE A DAY FOR 6WKS THEN 1 TABLET TWICE DAILY Oral for 90 Active Gabapentin 300 MG 1 capsule Orally Onc e a day for 30 day(s) Active Omeprazole 20 MG TAKE 1 CAPSULE BY [facility] 30 MINUTES BEFORE MORNING MEAL ONCE DAILY for 30 Active Dulera 200-5 MCG/ACT INHALE 2 PUFFS EVER Y 12 HOURS Inhalation for 30 Active Pravastatin Sodium 40 MG 1 tablet Orally Once a day for 30 day(s) Active Propranolol HCl ER 60 MG 1 capsule Orall y Once a day for 30 day(s) Active Allopurinol 300 MG 1 tablet Orally Once a day for 30 day(s) Active Lisinopril 40 MG 1 tablet Orally Once a day for 30 day(s) Active Aspirin 81 81 MG 1 tablet Orally Once a day for 30 day(s) Active ALPRAZolam 0.5 MG 1 tablet Orally Twic e a day Active Vitamin D 50 MCG (1999 UT) 1 capsule Ora lly Once a day for 30 day(s) Active IMMUNIZATIONS Vaccine Route Administration Date Status Comme nts Influenza Unknown 03/15/2021 Administered Influenza Unknown 06/30/2021 Administered Influenza Unknown 05/31/2022 Administered Influenza Unknown 05/22/2024 Administered SOCIAL HISTORY Tobacco Use: Social History Observation Description Date Details (start date - stop date) Never Smoker NA - NA Sex Assigned At : Social History Observation Description Sex Assigned At Unknown Tobacco Use/Smoking Question Answer Notes Patient is a nonsmoker Alcohol Screen Question Answer Notes Did you have a drink contain ing alcohol in the past year? Yes How often did you have a dri nk containing alcohol in the past year? Monthly or less (1 point) How many drinks did you have on a typical day when you were drinking in the past year? 1 or 2 drinks (0 point) How often did you have 6 or more drinks on one occasion in the past year? 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 Velarde esophagus (054138403) Problem Irritable bowel syndrome with constipation (K58.1) Active confirmed 678092013 VITAL SIGNS Temperature 98.7 degrees Fahrenheit 06/03/2024 Blood pressure diastolic 00 mm Hg 06/03/2024 Height 73 in 06/03/2024 Blood pressure systolic 000 mm Hg 06/03/2024 Weight 342 lb 4 oz lbs 06/03/2024 BMI 45.15 kg/m2 06/03/2024 Encounters Encounter Location Date Provider Diagnosis [facility] [address] [place] [address] 06/03/2024 Francisco Blackburn Jr Velarde esophagus K22.70 ASSESSMENTS Encounter Date Diagnosis Assessment Notes Treatment Notes Treatment Clinical Notes 06/03/2024 Velarde esophagus (ICD-10 - K22.70) Velarde esophagus material was printed PLAN OF TREATMENT Future Test Test Name Order Date UPPER GI ENDOSCOPY 03/15/2021 COLONOSCOPY 03/15/2021 UPPER GI ENDOSCOPY 03/01/2023 Next Appt Details Provider Name:Francisco lawson Jr, 06/04/2025 09:40:00 AM, [address], [address], [place], [address], Insurance Providers Payer Name Payer Address Payer Phone Subscriber Number Group Number Insured Name Patient Relationship to Insured Coverage Start Date Coverage End Date MEDICARE OF [place] [address] [place] [address] [phone] [id number] JUAN MIRANDA Self - patient is the insured [employer] ATT[employer] CLAIMS [address] [place] [address] [id number] JUAN MIRANDA Self - patient is the insured MEDICAL (GENERAL) HISTORY Medical History History ICD Code hypertension high cholesterol gout bladder cancer/prostate cancer ventral and peristomal hernias Urostomy Elevated BMI Obstructive sleep apnea, no CPAP Essential tremor Seasonal asthma Velarde's esophagus, 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 Colonoscopy 04/03, no polyps, exam limited by stool, consider sooner than ten-year followup Surgical History Surgery Date(Month/Year) cystoprostatectomy 2010 urethrectomy 2010 appendectomy 2010 urostomy 2011 Fistula repair with small bowel resectio n
--- OUTSIDE RECORDS SUMMARY | 2024-09-25 15:55 | XMS_ITS ---
Author Organization Donald Barnett DO, FAC Address [address], [place] [id number] Care Team Providers Care Chief Operating Engineer Name Role Phone Donald Barnett Primary Care Provider [phone] ALLERGIES Allergen (clinical drug ingredient) Drug/Non Drug Allergy documented on EMR Reaction Allergy Type Onset Date Status indomethacin Indomethacin GI upset Drug Allergy A ctive REASON FOR VISIT Follow up Tremor MEDICATIONS Medication SIG (Take, Route, Frequency, Duration) Notes Start Date End Date Status Vitamin D 50 MCG (2000 UT) 1 capsule Ora lly Once a day 10/06/2015 Active Dulera 200-5 MCG/ACT 2 puffs Inhalation Twice a day Active Allopurinol 300 MG 1 tablet Orally Once a day Active Omeprazole 20 MG 1 capsule Orally Onc e a day Active Pravastatin Sodium 40 MG 1 tablet Orally Once a day Active Albuterol Sulfate HFA 108 (90 Base) MCG/ACT 1 puff as needed Inhalation every 4 hrs Active Lisinopril 40 MG 1 tablet Orally Once a day Active Lisinopril 40 MG 1 tablet Orally Once a day for 30 day(s) 05/15/2024 Active Aspirin 81 MG 1 tablet Orally Once a day 03/11/2014 Active Propranolol HCl 10 MG 1 tablet Orally Tw ice a day Active ALPRAZolam 1 MG 1 tablet as needed O rally Once a day 04/01/2024 Active Gabapentin 300 MG 1 capsule Orally Onc e a day Active Primidone 50 MG 1 tablet Orally Twic e a day Active SOCIAL HISTORY Tobacco Use: Social History Observation Description Date Details (start date - stop date) Former Smoker NA - NA Sex Assigned At : Social History Observation Description Sex Assigned At Unknown Tobacco Use/Smoking Question Answer Notes Patient is a former smoker How long has it been since y ou last smoked? > 10 years Additional Findings: Tobacco Non-User Fo rmer smoker, currently using no form of tobacco Alcohol Screen Question Answer Notes Did you [...] Never (0 point) Points 1 Interpretation Negative VITAL SIGNS Blood pressure systolic 114 mm Hg 05/15/20 24 Blood pressure diastolic 60 mm Hg 024 Height 70.5 in 05/15/2024 Encounters Encounter Location Date Provider Diagnosis Donald Barnett DO, [address] [id number] 05/15/2024 Donald Barnett Essential hypertensi on I10 ; Hypercholesterolemia E78.00 ; Vitamin D deficiency E55.9 ; Sleep disturbance G47.9 ; Velarde's esophagus determined by biopsy K22.70 ; Acute idiopathic gout of left foot M10.072 ; Tremor R25.1 and Mild intermittent asthma without complication J45.20 ASSESSMENTS Encounter Date Diagnosis Assessment Notes Treatment Notes Treatment Clinical Notes 05/15/2024 Essential hypertensi on (ICD-10 - I10) 05/15/2024 Hypercholesterolemia (ICD-10 - E78.00) 05/15/2024 Vitamin D deficiency (ICD-10 - E55.9) 05/15/2024 Sleep disturbance (I CD-10 - G47.9) 05/15/2024 Velarde's esophagus determined by biopsy (ICD-10 - K22.70) 05/15/2024 Acute idiopathic gou t of left foot (ICD-10 - M10.072) 05/15/2024 Tremor (ICD-10 - R25.1) Foll ow up with Neurology 05/15/2024 Mild intermittent as thma without complication (ICD-10 - J45.20) PLAN OF TREATMENT Medication Medication Name Sig Start Date Stop Date Notes Vitamin D 50 MCG (1999 UT) 1 capsule Orally Once a day Dulera 200-5 MCG/ACT 2 puffs Inhalation Twice a day Allopurinol 300 MG 1 tablet Orally Once a day Omeprazole 20 MG 1 capsule Orally Once a day Pravastatin Sodium 40 MG 1 tablet Orally Once a day Albuterol Sulfate HFA 108 (9 0 Base) MCG/ACT 1 puff as needed Inhalation every 4 hrs Lisinopril 40 MG 1 tablet Orally Once a day for 30 day(s) 05/15/2024 Aspirin 81 MG 1 tablet Orally Once a day 03/11/2014 Propranolol HCl 10 MG 1 tablet Orally Twice a day ALPRAZolam 1 MG 1 tablet as needed O rally Once a day 04/01/2024 Gabapentin 300 MG 1 capsule Orally Once a day Primidone 50 MG 1 tablet Orally Twice a day Treatment Notes Assessment Notes Tremor Follow up with Neuro logy Next Appt Details Follow Up: 6 Months, Reason: follow up visit Progress Notes * Examination Category Sub-Category Detail Notes General Examination GENERAL APPEARANCE: in no ac [place] distress, well developed, well nourished HEAD: normocephalic, atrau matic HEART: no murmurs, regular rate and rhythm, S1, S2 normal LUNGS: clear to auscultatio n bilaterally ABDOMEN: normal, bowel sounds present, soft, nontender, nondistended SKIN: warm and dry EXTREMITIES: no edema PSYCH: alert, oriented, cog nitive function intact History and Physical Notes * HPI (History of Present Illness) Category Sub-Category Detail Notes Fall Risk Fall History Have you had two or more fal ls in the past year?: No Have you had any falls with injury in e past year?: No Fall Risk Assessment:: One fall without injury in the past year
--- OUTSIDE RECORDS SUMMARY | 2024-09-25 15:56 | XMS_ITS ---
Author Organization [facility] Address [address] [place] [address] Care Team Providers Care Breaster Name Role Phone Ericka (RETIRED) Donald JENNINGS Primary Care Provid er Unavailable Alexey Kern, Francisco Huitron REASON FOR VISIT pathology/ one yr office recall Encounters Encounter Location Date Provider Diagnosis [facility] [address] [place] [address] 04/12/2023 Francisco Blackburn Jr PLAN OF TREATMENT Next Appt Details Provider Name:Francisco lawson Jr, 06/04/2025 09:40:00 AM, [address], [address], [place], [address],
--- OUTSIDE RECORDS SUMMARY | 2024-09-25 15:56 | XMS_ITS ---
Author Organization [facility] Address [address] [place] [address] Care Team Providers Care Eastern Philosophy Professor Name Role Phone Ericka (RETIRED) Donald JENNINGS Primary Care Provid er Unavailable Alexey Kern, Francisco Huitron REASON FOR VISIT egd recall Encounters Encounter Location Date Provider Diagnosis [facility] [address] [place] [address] 06/07/2023 Francisco Blackburn Jr PLAN OF TREATMENT Next Appt Details Provider Name:Francisco lawson Jr, 06/04/2025 09:40:00 AM, [address], [address], [place], [address],
--- OUTSIDE RECORDS SUMMARY | 2024-09-25 15:56 | XMS_ITS ---
Author Organization [facility] Address [address] [place] [address] Care Team Providers Care Director Of Operations Support Name Role Phone Ericka (RETIRED) Donald JENNINGS Primary Care Provid er Unavailable Francisco Blackburn Jr Unavailable [phone] ALLERGIES Allergen (clinical drug ingredient) Drug/Non Drug Allergy documented on EMR Reaction Allergy Type Onset Date Status Non-steroidal anti-inflammatory agent (FN) NSAIDs really bad stomach upset Drug Allergy Active REASON FOR VISIT Patient presents today for Velarde's esophagus MEDICATIONS Medication SIG (Take, Route, Frequency, Duration) Notes Start Date End Date Status Primidone 50 MG TAKE 1 TABLET ORALLY ONCE A DAY FOR 6WKS THEN 1 TABLET TWICE DAILY Oral for 90 Active Gabapentin 300 MG 1 capsule Orally Onc e a day for 30 day(s) Active Omeprazole 20 MG TAKE 1 CAPSULE BY [facility] 30 MINUTES BEFORE MORNING MEAL ONCE DAILY for 30 Active Dulera 200-5 MCG/ACT INHALE 2 PUFFS EVER Y 12 HOURS Inhalation for 30 Active ALPRAZolam 0.5 MG 1 tablet Orally Twic e a day Active Pravastatin Sodium 40 [...] Once a day for 30 day(s) Active Vitamin D 50 MCG (1999 UT) 1 capsule Ora lly Once a day for 30 day(s) Active SOCIAL HISTORY Tobacco Use: Social History [...] point) Points 1 Interpretation Negative VITAL SIGNS BMI 45.15 kg/m2 06/03/2024 Blood pressure systolic 000 mm Hg 06/03/20 24 Blood pressure diastolic 00 mm Hg 024 Height 73 in 06/03/2024 Temperature 98.7 degrees Fahrenheit 06/03/20 24 Weight 342 lb 4 oz lbs 06/03/2024 Encounters Encounter Location Date Provider Diagnosis [facility] [address] [facility] [address] [place] [address] 06/03/2024 Francisco Blackburn Jr Velarde esophagus K22.70 ASSESSMENTS Encounter Date Diagnosis Assessment Notes Treatment Notes Treatment Clinical Notes 06/03/2024 Velarde esophagus (ICD-10 - K22.70) Velarde esophagus material was printed PLAN OF TREATMENT Treatment Notes Assessment Notes Velarde esophagus Velarde esophagus johnathon moncada was printed Next Appt Details Follow Up: 1 Year, Reason: Provider Name:Francisco lawson Jr, 06/04/2025 09:40:00 AM, [address] [facility], [address], [place], [address],
--- OUTSIDE RECORDS SUMMARY | 2024-09-25 15:56 | XMS_ITS ---
Author Organization Donald Barnett DO [facility] Address [address] [place], [place] [id number] Care Team Providers Care Running Specialist Name Role Phone Donald Barnett Primary Care Provider REASON FOR VISIT FYI Encounters Encounter Location Date Provider Diagnosis Donald Barnett DO, FACP [address] [place] [phone] 06/21/2024 Donald Barnett PLAN OF TREATMENT No Information
--- OUTSIDE RECORDS SUMMARY | 2024-09-25 15:56 | XMS_ITS ---
Author [facility] Address [address], [place] [id number] Care Team Providers Care Baker Second Name Role Phone ErickaDonald soares Primary Care Provider [phone] REASON FOR VISIT Refills MEDICATIONS Medication SIG (Take, Route, Fr equency, Duration) Notes Start Date End Date Status ALPRAZolam 1 MG 1 tablet as needed O rally Once a day for 30 days 06/19/2024 Active Encounters Encounter Location Date Provider Diagnosis Donald Barnett DO, [facility] [address], [place] [phone] 06/19/2024 Donald Barnett Sleep disturbance G47.9 ASSESSMENTS Encounter Date Diagnosis Assessment Notes Treatment Notes Treatment Clinical Notes 06/19/2024 Sleep disturbance (ICD-10 - G47.9) PLAN OF TREATMENT Medication Medication Name Sig Start Date Stop Date Notes ALPRAZolam 1 MG 1 tablet as needed O rally Once a day for 30 days 06/19/2024
== END 2024-09-25 15:20 | disposition home or self-care (01) ==
LOC: HO.HMCSH 14:42
PROVIDERS: PCP Internal Medicine; Visit Provider Internal Medicine
DX: I10 Essential (primary) hypertension (principal)

== ENCOUNTER → 2024-09-25 14:42 | Outpatient (BNVA) | payer MEDICARE, SELFPAY | PROVIDERS: PCP Internal Medicine; Visit Provider Internal Medicine | DX: I10 Essential (primary) hypertension (principal) | CPT/HCPCS: 99202 ==

== ENCOUNTER 2024-11-19 09:22 | Outpatient (AMB) | payer MEDICARE, SELFPAY ==
[2024-11-19 09:28] VITALS: BP 130/82; PULSE 64; O2SAT 95; BMI 47.7
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
--- OUTSIDE RECORDS SUMMARY | 2024-11-19 10:27 | XMS_ITS ---
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 Medications Medication SIG (Take, Route, Frequency, Duration) Notes [...] Once a day for 30 day(s) Active Social History Tobacco Use: Social History Observation Description Date Details (start date - stop date) Never Smoker NA - NA Tobacco Use/Smoking Question Answer Notes Patient is [...] Never (0 point) Points 1 Interpretation Negative Vital Signs Temperature 98.7 degrees Fahrenheit 06/03/20 24 Blood pressure systolic 000 mm Hg 06/03/20 24 Blood pressure diastolic 00 mm Hg 024 Height 73 in 06/03/2024 Weight 342 lb 4 oz lbs 06/03/2024 BMI 45.15 kg/m2 06/03/2024 Encounters Encounter Location Date Provider Diagnosis [facility] [address] [place] [id number] 06/03/2024 Francisco Blackburn Jr 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 He'll continue his present regimen. We discussed diet, lifestyle modifications, and weight management regarding the treatment of reflux. Followup will be in one year. He is up-to-date on colorectal cancer screening. Plan Of Treatment Treatment Notes Assessment Notes Velarde esophagus Velarde esophagus johnathon moncada was printed Next Appt Details Follow Up: 1 Year, Reason: Provider Name:Francisco lawson Jr, 06/04/2025 09:40:00 AM, [address] [place] [address], [address], [place], [address], Progress Notes * JUAN FELIPEDOB: [birth year] (68 yo M)Acc No.[id number]:06/03/2024 Progress Notes Patient:?JUAN FELIPE Provider:?Francisco Blackburn MD :1955???Age:68 Y???Sex:Male Sukhi e:06/03/2024 Address:[address] [place] [address], [place], [place]-[id number] Pcp:Donald Barnett, DO Subjective: * Chief Complaints: * ???1. Patient presents today for Velarde's esophagus. * HPI: ???New symptom(s):? Mr. Felipe is a 68-year-old man seen today in followup of Velarde's esophagus. He underwent upper endoscopy in March last year. This showed short segment Velarde's from 38-40 cm. Biopsies were negative for dysplasia. We reviewed this today. Overall, he states he's doing pretty well. He did increase his omeprazole to 20 mg b.i.d. which seems to control his reflux better. He has no dysphagia, hematemesis, or melena. He uses antacids for breakthrough symptoms sometimes, as much as 2-3 times per day. He does sleep with the head of the bed elevated. * Medical History:?Hypertensio n, High cholesterol, Gout, Bladder cancer/prostate cancer, Ventral and peristomal hernias, Urostomy, Elevated BMI, Obstructive sleep apnea, no CPAP, Essential tremor, Seasonal asthma, Velarde's esophagus, EGD 04/05, short segment Velarde's, no dysplasia, followup 3-5 years., Colonoscopy 04/03, no polyps, exam limited by stool, consider sooner than ten-year followup. * Surgical History:?cystoprost atectomy 2010, urethrectomy 2010, appendectomy 2010, urostomy 2010, Fistula repair with small bowel resection . * Family History:?Father: dece ased, diagnosed with Heart disease.?Mother: .? No history of colon polyps, colon cancer or liver cancer. * Social History:?Tobacco Use:?Tobacco Use/Smoking?Patient is a?nonsmoker.?Drugs/Alcohol:?Alcohol Screen?Did you have a drink containing alcohol in the past year??Yes,?How often did you have a drink containing alcohol in the past year??Monthly or less (1 point), How many drinks did you have on a typical day when you were drinking in the past year??1 or 2 drinks (0 point),?How often did you have 6 or more drinks on one occasion in the past year??Never (0 point),?Points?1,?Interpretation?Negative.?Miscellaneous:?Marital status: . Occupation: retired. * Medications:?Taking Gabapent in 300 MG Capsule 1 capsule Orally Once a day, Taking ALPRAZolam 0.5 MG Tablet 1 tablet Orally Twice a day, Taking Vitamin D 50 MCG (2000 UT) Capsule 1 capsule Orally Once a day, Taking Aspirin 81 81 MG Tablet Chewable 1 tablet Orally Once a day, Taking Allopurinol 300 MG Tablet 1 tablet Orally Once a day, Taking Lisinopril 40 MG Tablet 1 tablet Orally Once a day, Taking Pravastatin Sodium 40 MG Tablet 1 tablet Orally Once a day, Taking Propranolol HCl ER 60 MG Capsule Extended Release 24 Hour 1 capsule Orally Once a day, Taking Omeprazole 20 MG Capsule Delayed Release TAKE 1 CAPSULE BY MOUTH 30 MINUTES BEFORE MORNING MEAL ONCE DAILY , Taking Dulera 200-5 MCG/ACT Aerosol INHALE 2 PUFFS EVERY 12 HOURS Inhalation , Taking Primidone 50 MG Tablet TAKE 1 TABLET ORALLY ONCE A DAY FOR 6WKS THEN 1 TABLET TWICE DAILY Oral , Medication List reviewed and reconciled with the patient * Allergies:?NSAIDs: really ba d stomach upset. Objective: * Vitals:?Wt: 342 lb 4 oz, Ht: 73 in, BMI:45.15 Index, BP: 000/00 mm Hg, Temp: 98.7. * Examination: ???General Examination: ???On examination today, he appears well. Skin is anicteric. Lungs are clear. Heart shows regular rate and rhythm. Abdomen is soft without focal mass or tenderness and abdominal binder is present. Extremities are without edema. Assessment: * Assessment: 1.?Velarde esophagus - K22.7 0 (Primary)? At this time, he is doing we ll. He'll continue his present regimen. We discussed diet, lifestyle modifications, and weight management regarding the treatment of reflux. Followup will be in one year. He is up-to-date on colorectal cancer screening. Plan: * Treatment: * Procedure Codes:?3017F COLOR ECTAL CA SCREEN DOC REV, G9903 Pt scrn tbco id as non user, G9744 PATIENT NOT ELIG D/T ACTIVE DX HTN * Preventive Medicine:? ??Counseling:?Care goal follow-up plan:?Above Normal BMI Follow-up?Giving encouragement to exercise,?BMI management provided?Yes.? ??Screenings:?Fall Risk Screening?Fall Risk Assessment:?No falls in the past year,?Screening:?No falls in the past year,?Assessment:?Not performed, no reason specified,?Plan of Care:?Not documented, no reason specified.? * Follow Up:?1 Year * * Sign off status: Completed true * Provider:?Francisco Blackburn MD Date:?1 Generated for ELERTSi marko/Dinh/eTransmitting on:?11/19/2024 10:27 AM EDT History and Physical Notes * HPI (History of Present Illness) Category Sub-Category Detail Notes Category Not es New symptom(s) Mr. Felipe is a 68-year-old man seen today in followup of Velarde's esophagus. He underwent upper endoscopy in March last year. This showed short segment Velarde's from 38-40 cm. Biopsies were negative for dysplasia. We reviewed this today. Overall, he states he's doing pretty well. He did increase his omeprazole to 20 mg b.i.d. which seems to control his reflux better. He has no dysphagia, hematemesis, or melena. He uses antacids for breakthrough symptoms sometimes, as much as 2-3 times per day. He does sleep with the head of the bed elevated. Examination Category Sub-Category Detail Notes Category Not es General Examination On exami nation today, he appears well. Skin is anicteric. Lungs are clear. Heart shows regular rate and rhythm. Abdomen is soft without focal mass or tenderness and abdominal binder is present. Extremities are without edema.
--- OUTSIDE RECORDS SUMMARY | 2024-11-19 10:27 | XMS_ITS | Patient Health Record ---
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 Name Role Phone Ericka (RETIRED) Donald JENNINGS Primary Care Provid er Unavailable Francisco Blackburn Jr Unavailable Allergies Allergen (clinical drug ingredient) Drug/Non Drug Allergy documented on EMR Reaction Allergy Type Onset Date Status Non-steroidal anti-inflammatory agent (FN) NSAIDs really bad stomach upset Drug Allergy Active Reason For Referral No Information Medications Medication SIG (Take, Route, Frequency, Duration) Notes Start Date End Date Status Primidone 50 MG TAKE 1 TABLET ORALLY ONCE A DAY FOR 6WKS THEN 1 TABLET TWICE DAILY Oral for 90 Active Gabapentin 300 MG 1 capsule Orally Onc e a day for 30 day(s) Active Omeprazole 20 MG TAKE 1 CAPSULE BY [facility] 30 MINUTES BEFORE MORNING MEAL ONCE DAILY [...] Once a day for 30 day(s) Active Immunizations Vaccine Route Administration Date Status Comme nts Influenza Unknown 03/15/2021 Administered Influenza Unknown 06/30/2021 Administered Influenza Unknown 05/31/2022 Administered Influenza Unknown 05/22/2024 Administered Social History Tobacco Use: Social History Observation [...] Never (0 point) Points 1 Interpretation Negative Problems Problem Type SNOMED Code ICD Code Onset Dates Problem Status W/U Status Risk Notes Problem 767433789 Colon cancer screening (Z12.11) Active confirmed Problem 23514548 Epigastric pain (R10.13) Active confirmed Problem Velarde esophagus (260095836) Velarde esophagus (K22.70) Active confirmed Problem 637393913 Irritable bowel syndrome with constipation (K58.1) Active confirmed Vital Signs Temperature 98.7 degrees Fahrenheit 06/03/2024 Blood pressure diastolic 00 mm Hg 06/03/2024 Height 73 in 06/03/2024 Blood pressure systolic 000 mm Hg 06/03/2024 Weight 342 lb 4 oz lbs 06/03/2024 BMI 45.15 kg/m2 06/03/2024 Encounters Encounter Location Date Provider Diagnosis [facility] [address] [facility] [address] [place] [phone] 06/03/2024 Francisco Blackburn Jr 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 Plan Of Treatment Future Test Test Name Order Date UPPER GI ENDOSCOPY 03/15/2021 COLONOSCOPY 03/15/2021 UPPER GI ENDOSCOPY 03/01/2023 Next Appt Details Provider Name:Francisco lawson Jr, 06/04/2025 09:40:00 AM, [address], [address], [place], [address], Insurance Providers Payer Name Payer Address Payer Phone Subscriber Number Group Number Insured Name Patient Relationship to Insured Coverage Start Date Coverage End Date MEDICARE OF [place] [address] [place] [address] [id number] JUAN MIRANDA Self - patient is the insured MED[employer] ATTN CLAIMS [address] [place] [address] [phone] [id number] JUAN MIRANDA Self - patient is the insured Medical (General) History Medical History History ICD Code hypertension high cholesterol gout bladder cancer/prostate cancer ventral and peristomal hernias Urostomy Elevated BMI Obstructive sleep apnea, no CPAP Essential tremor Seasonal asthma Velarde's esophagus, EGD 03/15 3, short segment Velarde's, no dysplasia, followup 3-5 years. Colonoscopy 04/03, no polyps, exam limited by stool, consider sooner than ten-year followup Surgical History Surgery Date(Month/Year) cystoprostatectomy 2010 urethrectomy 2010 appendectomy 2011 urostomy 2011 Fistula repair with small bowel resectio n
--- OUTSIDE RECORDS SUMMARY | 2024-11-19 10:27 | XMS_ITS ---
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 [address] [place] [address] 06/07/2023 Francisco Blackburn Jr Plan Of Treatment Next Appt Details Provider Name:Francisco lawson Jr, 06/04/2025 09:40:00 AM, [address], [address], [place], [address], Progress Notes * JUAN MIRANDADOB: [birth year] (69 yo M)Acc No.[id number]:06/07/2023 Progress Notes Patient:?JUAN MIRANDA Provider:?Francisco Blackburn MD :1955???Age:67 Y???Sex:Male Sukhi e:06/07/2023 Address:[address] [place] [address] [place]IYA KEN ID-[id number] Pcp:Donald Barnett (RETIRE D), DO Subjective: * Chief Complaints: * ???1. Egd recall. * Medical History:? Objective: * Vitals:? Assessment: Plan: * Treatment: * * The named appointment provid er may or may not be the originator of this progress note, and it is not deemed complete until electronically signed by the appointment provider. Sign off status: Pending * Provider:?Francisco Blackburn MD Date:?1 Generated for Ginny zhu/Dinh/Prabha on:?11/19/2024 10:27 AM EDT
== END 2024-11-19 10:07 | disposition home or self-care (01) ==
PROVIDERS: PCP Internal Medicine; Visit Provider Hospitalist
DX: J44.89 Other specified chronic obstructive pulmonary disease (principal); F51.01 Primary insomnia
CPT/HCPCS: 99214; G2211

== ENCOUNTER 2024-11-19 09:22 | Outpatient (REF) | payer MEDICARE, SELFPAY ==
--- NOTE | ~2024-11-19 | XR_ITS ---
EXAMINATION: XR CHEST 2 VIEWS HISTORY: J44.89 - Other specified chronic obstructive pulmonary disease COMPARISON: Comparison is made with the prior examination dated to 118. FINDINGS: PA and lateral views of the chest are submitted. The lungs are expanded and clear. There is no pleural effusion, pneumothorax, or pulmonary vascular congestion. The heart is normal in size. There is degenerative disc disease of the spine. XR/XR chest 2V IMPRESSION: No acute cardiopulmonary abnormality. Electronically signed by: Donald Damon MD 11/19/2024 11:15 AM EDT
== END 2024-11-19 09:23 | disposition home or self-care (01) ==
LOC: HO.XRAY 09:22
PROVIDERS: PCP Internal Medicine; Visit Provider Hospitalist
DX: J44.89 Other specified chronic obstructive pulmonary disease (principal); F51.01 Primary insomnia
CPT/HCPCS: 71046; 99212

== ENCOUNTER → 2024-11-19 10:11 | Outpatient (BNV) | payer MEDICARE, SELFPAY | PROVIDERS: PCP Internal Medicine; Visit Provider Radiology Diagnostic Radiology | DX: J44.89 Other specified chronic obstructive pulmonary disease (principal) | CPT/HCPCS: 71046 ==

== ENCOUNTER 2025-01-07 14:46 | Outpatient (AMB) | payer MEDICARE, SELFPAY ==
[2025-01-07 14:47] VITALS: BP 130/61; PULSE 66; RESP 16; TEMP 36.4; O2SAT 95; BMI 49.9
--- NOTE | 2025-01-07 14:47 | A.OFFPC_ITS ---
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 Required: No Accompanied by: Self / Same As Patient Allergies NSAIDS (Non-Steroidal Anti-Inflamma Adverse Reaction (Intermediate, Verified 01/07/25 14:48) Gastrointestinal Upset Tobacco use date assessed: 01/07/25 Fall risk assessment: 2 + Falls in past year Last assessed Fall Risk: 01/07/25 Dental Screening Dental Screen Date: 01/07/25 Did you have a dental visit in the last 12 months?: Yes Did you have a dental problem in the last 6 months where you did not have access to dental care?: No Was dental information given to patient?: Patient has dentist [facility] Medical History Asthma-COPD overlap syndrome COVID-19 vaccine series completed Asthma Prostate cancer Bladder cancer Essential tremor Sleep apnea Gout Elevated cholesterol HTN (hypertension) Surgical History Hx of appendectomy Hx of resection of small bowel Hx of prostatectomy Hx of cystoscopy Hx of cystoscopy H/O colonoscopy (~04/13/21) Family History Father Lung cancer Hypertension Mother No problems noted. Social History Household Members: Spouse Housing: House Are you a primary career development coordinator/teacher to a significant other at home: No Do you presently have visiting nurse or other home services: No Alcohol intake: current Alcohol intake frequency: holidays/special occasions only Patient Tobacco Use Status: Former Tobacco user Tobacco use type: Cigarette service: No Current occupational status: retired Cognitive needs: Yes (cane) Hearing needs: No Vision needs: Yes (rx glasses) Questionnaire PHQ-9 Over the last 2 weeks, how often have you been bothered by any of the following problems? 1. Little interest or pleasure in doing things: not at all 2. Feeling down, depressed, or hopeless: not at all 3. Trouble falling or staying asleep, or sleeping too much: nearly every day 4. Feeling tired or having little energy: not at all 5. Poor appetite or overeating: not at all 6. Feeling bad about yourself - or that you are a failure or have let yourself or your family down: not at all 7. Trouble concentrating on things, such as reading the newspaper or watching television: not at all 8. Moving or speaking so slowly that other people could have noticed. Or the opposite - being so fidgety or restless that you have been moving around a lot more than usual: not at all 9. Thoughts that you would be better off or of hurting yourself in some way: not at all Total score: 3 Source: Developed by Drs. Donald De Los Santos, Kathy Gaviria, Dewey Rothman and colleagues, with an educational sreedhar from [employer]. Thrive Questionnaire Date Thrive assessed: 01/07/25 I am a: Patient What is your living situation today?: I have a steady place to live Within the past 12 months, did the food you bought not last and you didn't have the money to get more?: Never true Within the past 12 months, did you worry whether your food would run out before you got money to buy more?: Never true Do you have trouble paying for medicines?: No Do you have trouble getting transportation to medical appointments?: No Do you have trouble paying your heating and electricity bill?: No Do you have trouble taking care of your child, family member or friend?: No Do you have trouble with day-to-day activities such as bathing, preparing meals, shopping, managing finances, etc.?: No Are you currently unemployed and looking for a job?: No Are you interested in more education?: No Please select the resources that you would like help with: None THRIVE Score: 0 AUDIT C Alcohol Use Questionnaire (AUDIT-C) 1. How often do you have a drink containing alcohol?: Monthly or less 2. How many drinks containing alcohol do you have on a typical day when you are drinking?: 1 or 2 3. How often do you have six or more drinks on one occasion?: Never Total Score: 1 JAIME-7 AMB Questionnaire JAIME-7 Date JAIME - 7 assessed: 01/07/25 Feeling nervous, anxious, or on edge: 0 = Not at all Not being able to stop or control worryin = Not at all Worrying too much about different things: 0 = Not at all Trouble relaxin = Not at all Being so restless that it is hard to sit still: 0 = Not at all Becoming easily annoyed or irritable: 0 = Not at all Feeling afraid as if something awful might happen: 0 = Not at all Total JAIME-7 score (0-4 normal; 5-9 mild; 10-14 moderate; 15-21 severe): 0 Source: Developed by Drs. Donald De Los Santos, Kathy Gaviria, Dewey Rothman and colleagues, with an educational sreedhar from [employer]. Physical exam (Primary Care) Vital Signs: Last Vital Signs Temp 97.6 F 01/07/25 14:47 Pulse 66 01/07/25 14:47 Resp 16 01/07/25 14:47 BP 130/61 01/07/25 14:47 Pulse Ox 95 01/07/25 14:47 Oxygen Delivery Method Room Air 01/07/25 14:47 BMI result Body Mass Index 49.9 Tobacco/Smoking Status: Tobacco use Status Tobacco use date assessed 01/07/25 01/07/25 14:50 Patient Tobacco Use Status Former Tobacco user 01/07/25 15:00 Tobacco use type Cigarette 01/07/25 15:00 PHQ-9: PHQ-9 Score PHQ-9: Total score 3 01/07/25 15:01 Thrive Assessment: Date of Thrive Assessment Date Thrive assessed 01/07/25 01/07/25 14:50 Coding Level of Care Code Est Pt Level 4 (17670) Complex EM visit Add On G2211 Diagnoses HTN (hypertension) I10 Assessment & Plan Assessment & Plan (1) HTN (hypertension): Code(s): I10 - Essential (primary) hypertension Category: Medical Plan: BP in range. On Lisinopril and Propranolol. Can take propranolol upto 60 mg a day. Helps with his essential tremor also. Plan History of Present Illness The patient is a 69-year-old male presenting with follow-up for hypertension and management of essential tremor. He is prescribed lisinopril 40 mg daily for hypertension, and propranolol 20 mg twice daily to address both hypertension and essential tremor, as prescribed by a neurologist. Previous trials of primidone were ineffective due to anxiety side effects. He resumed propranolol with stable home blood pressure recorded. Notably, he historically tolerated 60 mg doses without significant issues except for rare dizziness upon standing. The patient hikes frequently, concerned that higher doses of propranolol may impact his heart rate tolerance during activity. Regarding insomnia, the patient takes alprazolam two to three times weekly, experiencing relief. Prior attempts with trazodone and melatonin were ineffective. [id number] analgesics are used for general pain relief. Social History - Engages in frequent hiking, highlighting an active lifestyle. - No indication of substance use or other social determinants impacting health. Review of Systems - Cardiovascular: Denies changes in blood pressure at home. Reports low heart rate with prior 60 mg propranolol use. - Neurological: Reports persistent tremor. Denies improvement with primidone. - Musculoskeletal: Reports aches and pains, managed with Advil and Tylenol. - Sleep: Reports insomnia managed with alprazolam; ineffective trials with trazodone and melatonin. Physical Exam General: Cooperative and healthy appearing Nutritional Appearance: Well nourished Orientation/consciousness: Patient oriented x3 Limitations: No limitations Head: Normal to inspection General: Appearance normal, both eyes and all related structures Neck: Normal visual inspection Chest: Normal palpation of entire chest wall Respiratory: N ormal respiratory effort Neurology: Patient oriented x3, reports worsening essential tremor, currently managed with propranolol. Results Plan 1. Essential Hypertension - Adjust propranolol dosing to three times daily and evaluate for conversion to extended-release if tolerated. - Continue lisinopril 40 mg daily. 2. Essential Tremor - Adjust propranolol and monitor for symptom control and side effects. - Discuss potential dosage shifts pending outcome. 3. Insomnia - Renewed alprazolam prescription, maintaining existing usage. Discussion Notes I informed the patient about continuing his current hypertension treatment with lisinopril and recommended optimizing propranolol for both essential tremor and blood pressure management. We discussed transitioning to propranolol 60 mg extended-release if tolerated during activities, particularly hiking, mitigating risks of bradycardia and dizziness. For insomnia, I recommended maintaining his adjusted alprazolam use, as it effectively manages his symptoms. Follow-up was arranged for six months unless necessary sooner. Patient Instructions - Take lisinopril 40 mg daily. - Adjust propranolol to 20 mg three times daily, with the option to switch to 60 mg extended-release. - Skip mid-day propranolol dose on days involving physically strenuous activities. - Continue alprazolam as needed for insomnia, refilled as approved. - Follow up in six months or sooner if needed.
== END 2025-01-07 15:35 | disposition home or self-care (01) ==
LOC: HO.HMCSH 14:46
PROVIDERS: PCP Internal Medicine; Visit Provider Internal Medicine
DX: I10 Essential (primary) hypertension (principal)

== ENCOUNTER → 2025-01-07 14:46 | Outpatient (BNVA) | payer MEDICARE, SELFPAY | PROVIDERS: PCP Internal Medicine; Visit Provider Internal Medicine | DX: I10 Essential (primary) hypertension (principal) | CPT/HCPCS: 99212 ==

== ENCOUNTER 2025-05-21 09:25 | Outpatient (AMB) | payer MEDICARE, SELFPAY ==
[2025-05-21 09:31] VITALS: BP 142/82; PULSE 62; O2SAT 95; BMI 50.1
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
== END 2025-05-21 10:05 | disposition home or self-care (01) ==
LOC: HO.HPS 09:26
PROVIDERS: PCP Internal Medicine; Visit Provider Hospitalist
DX: J44.89 Other specified chronic obstructive pulmonary disease (principal); F51.01 Primary insomnia
CPT/HCPCS: 99214; G2211

== ENCOUNTER → 2025-05-21 09:25 | Outpatient (BNVA) | payer MEDICARE, SELFPAY | PROVIDERS: PCP Internal Medicine; Visit Provider Hospitalist | DX: J44.89 Other specified chronic obstructive pulmonary disease (principal); F51.01 Primary insomnia; Z87.891 Personal history of nicotine dependence; E66.9 Obesity, unspecified; Z68.43 Body mass index [BMI] 50.0-59.9, adult; I10 Essential (primary) hypertension | CPT/HCPCS: 99212 ==

== ENCOUNTER 2025-06-30 06:44 | Outpatient (REF) | payer MEDICARE, SELFPAY ==
--- OUTSIDE RECORDS SUMMARY | 2025-06-04 04:40 | XMS_ITS ---
Author Organization [facility] Address [address] [facility] [address] [place] [phone] Care Team Providers Care Drum Saw Operator Name Role Phone Ericka (RETIRED) Donald JENNINGS Primary Care Provid er Unavailable Francisco Blackburn Jr REASON FOR VISIT Patient presents today for greer's Encounters Encounter Location Date Provider Diagnosis [facility] [address] [facility] [address] [place] [address] 06/04/2025 Francisco Blackburn Jr Plan Of Treatment Next Appt Details Provider Name:Francisco lawson Jr, 10/06/2025 11:00:00 AM, [address] [facility], [address], [place], [address], Progress Notes * JUAN MIRANDADOB: [birth year] (69 yo M)Acc No.[id number]:06/04/2025 Progress Notes Patient: Ivy HERRERAJUAN COLLIER Provider: Taryn Blackburn MD :1955 A ge:69 Y S ex:Male Date:06/04/2025 Address:[address] [facility] [id number] Pcp:Donald Barnett (RETIRE D), Subjective: * Chief Complaints: * P atient presents today for greer's * The named appointment provid er may or may not be the originator of this progress note, and it is not deemed complete until electronically signed by the appointment provider. Sign off status: Pending * Provider: Taryn Blackburn MD Date: Generated for Ginny zhu/Dinh/Prabha on: 08/30/2024 06:48 AM EST
--- OUTSIDE RECORDS SUMMARY | 2025-06-30 06:48 | XMS_ITS | Clinical Summary ---
Author Organization [address] [facility] Address [address] [place] [address] Phone Care Team Providers Care Senior Information Developer Name Role Phone Unavailable Primary Care Provider Unavailabl e Encounters Date Type Department Care Team Description 05/23/2025 Lab Requisition [facility] [address] [facility] [place] [address] Elder Boykin PA Other abnormal findings in urine from Last 3 Months Social History Tobacco Use Types Packs/Day Years Used Date Smoking Tobacco: Never Assessed Sex and Gender Information Value Date Recorded Sex Assigned at Not on file Legal Sex Male 2:22 PM EDT Gender Identity Not on file Sexual Orientation Not on file Plan of Treatment Health Maintenance Due Date Last Done Comments Colorectal Cancer Screening: Colonoscopy 1955 DTaP,Tdap,and Td Vaccines (1 - Tdap) 1976 Pneumococcal Vaccine: 50+ Ye ars (1 of 1 - PCV) 2007 Zoster Vaccines (1 of 2) 2007 Depression Screening 08/14/2024 COVID-19 Vaccine (1 - 2024-2 6 season) 2025 Influenza Vaccine (#1) 2025 Abdominal Aortic Aneurysm (A AA) Screen 05/23/2025 Cholesterol Screening (Lipid Panel) 05/23/2025 Falls Risk Assessment 05/23/2025 Hepatitis C Screening 05/23/2025 Medicare Annual Wellness Visit 05/23/2025 Social Influencers of Health Screening 05/23/2025 RSV Immunization Adult Patie nts (1 - 1-dose 75+ series) 2032 HIB Vaccines Aged Out No longer eligi ble based on patient's age to complete this topic HPV Vaccines Aged Out No longer eligi ble based on patient's age to complete this topic Hepatitis A Vaccines Aged Out No long er eligible based on patient's age to complete this topic Hepatitis B Vaccines Aged Out No long er eligible based on patient's age to complete this topic IPV Vaccines Aged Out No longer eligi ble based on patient's age to complete this topic MMR Vaccines Aged Out No longer eligi ble based on patient's age to complete this topic Meningococcal ACWY Vaccine Aged Out N o longer eligible based on patient's age to complete this topic Meningococcal B Vaccine Aged Out No l onger eligible based on patient's age to complete this topic RSV Immunization Patients Un adrian 20 months Aged Out No longer eligible b ased on patient's age to complete this topic Varicella Vaccines Aged Out No longer eligible based on patient's age to complete this topic Procedures Procedure Name Priority Date/Time Associated Diagnosis Comments BACTERIAL IDENTIFICATION AND SUSCEPTIBILITY, AEROBIC Routine 05/22/2025 12:00 AM EDT Other abnormal findings in urine from Last 3 Months Results * (ABNORMAL) Baterial identification and susceptibility, aerobic (05/22/2025 12:00 AM EDT) Pathologist [facility] Culture, Bacterial ID and Sensitivity Escherichia coli(A) OMA 05/26/2025 9:[address] [facility] Comment: This is an edited result. Previous organism was Gram negative bacilli on 05/25/2025 at 0939 EDT. Culture, Bacterial ID and Sensitivity Klebsiella pneumoniae ssp pneumoniae(A) OMA 05/26/2025 9:[address] [facility] Comment: The organism value for this result has been updated. These results have been appended to the previously preliminary verified report. This is an edited result. Previous organism was Gram negative bacilli on 05/24/2025 at 1107 EDT. Culture, Bacterial ID and Sensitivity Proteus mirabilis(A) OMA 05/26/2025 9:[address] [facility] Comment: The organism value for this result has been updated. These results have been appended to the previously preliminary verified report. Edited result: Previously reported as Proteus species on 05/24/2025 at 1107 EDT. Other Urine specimen from nephrostomy tube / Unknown 05/22/2025 05/23/2025 2:29 PM EDT Narrative Organism Antibiotic Method Susceptibility Escherichia coli Amoxicillin/Clavulanate OMA <=2 ug/ml: Susceptible Comment:This is an a ppended report. These results have been appended to a previously preliminary verified report. Escherichia coli Ampicillin/Sulbactam OMA <=2 ug/ml: Susceptible Comment:This is an a ppended report. These results have been appended to a previously preliminary verified report. Escherichia coli Piperacillin/Tazobactam OMA <=4 ug/ml: Susceptible Comment:This is an a ppended report. These results have been appended to a previously preliminary verified report. Escherichia coli Cefazolin (Urine) OMA <=1 ug/ml: Susceptible Comment:This is an a ppended report. These results have been appended to a previously preliminary verified report. Escherichia coli Cefoxitin OMA <=4 ug/ml: Susceptible Comment:This is an a ppended report. These results have been appended to a previously preliminary verified report. Escherichia coli Ceftazidime MOA <=0.5 ug/ml: Susceptible Comment:This is an a ppended report. These results have been appended to a previously preliminary verified report. Escherichia coli Ceftriaxone OMA <=0.25 ug/ml: Susceptible Comment:This is an a ppended report. These results have been appended to a previously preliminary verified report. Escherichia coli Cefepime OMA <=0.12 ug/ml: Susceptible Comment:This is an a ppended report. These results have been appended to a previously preliminary verified report. Escherichia coli Meropenem OMA <=0.25 ug/ml: Susceptible Comment:This is an a ppended report. These results have been appended to a previously preliminary verified report. Escherichia coli Amikacin OMA <=1 ug/ml: Susceptible Comment:This is an a ppended report. These results have been appended to a previously preliminary verified report. Escherichia coli Gentamicin OMA <=1 ug/ml: Susceptible Comment:This is an a ppended report. These results have been appended to a previously preliminary verified report. Escherichia coli Ciprofloxacin OAM <=0.06 ug/ml: Susceptible Comment:This is an a ppended report. These results have been appended to a previously preliminary verified report. Escherichia coli Levofloxacin OMA <=0.12 ug/ml: Susceptible Comment:This is an a ppended report. These results have been appended to a previously preliminary verified report. Escherichia coli Nitrofurantoin OMA <=16 ug/ml: Susceptible Comment:This is an a ppended report. These results have been appended to a previously preliminary verified report. Escherichia coli Trimethoprim/Sulfame thoxazo le OMA <=20 ug/ml: Susceptible Comment:This is an a ppended report. These results have been appended to a previously preliminary verified report. Comment:The previously repor salo component CEFAZOLIN is no longer being reported. Klebsiella pneumoniae ssp pneumoniae Amoxicillin/Clavulanate OMA <=2 ug/ml: Susceptible Klebsiella pneumoniae ssp pneumoniae Ampicillin/Sulbactam OMA 8 ug/ml: Susceptible Klebsiella pneumoniae ssp pneumoniae Piperacillin/Tazobactam OMA <=4 ug/ml: Susceptible Klebsiella pneumoniae ssp pneumoniae Cefazolin (Urine) OMA 2 ug/ml: Susceptible Klebsiella pneumoniae ssp pneumoniae Cefoxitin OMA <=4 ug/ml: Susceptible Klebsiella pneumoniae ssp pneumoniae Ceftazidime OMA <=0.5 ug/ml: Susceptible Klebsiella pneumoniae ssp pneumoniae Ceftriaxone OMA <=0.25 ug/ml: Susceptible Klebsiella pneumoniae ssp pneumoniae Cefepime OMA <=0.12 ug/ml: Susceptible Klebsiella pneumoniae ssp pneumoniae Meropenem OMA <=0.25 ug/ml: Susceptible Klebsiella pneumoniae ssp pneumoniae Amikacin OMA <=1 ug/ml: Susceptible Klebsiella pneumoniae ssp pneumoniae Gentamicin OMA <=1 ug/ml: Susceptible Klebsiella pneumoniae ssp pneumoniae Ciprofloxacin OMA <=0.06 ug/ml: Susceptible Klebsiella pneumoniae ssp pneumoniae Levofloxacin OMA <=0.12 ug/ml: Susceptible Klebsiella pneumoniae ssp pneumoniae Nitrofurantoin OMA 64 ug/ml: Intermediate Klebsiella pneumoniae ssp pneumoniae Trimethoprim/Sulfamethoxazo le OMA <=20 ug/ml: Susceptible Proteus mirabilis Amoxicillin/Clavulanate OMA <=2 ug/ml: Susceptible Proteus mirabilis Ampicillin/Sulbactam OMA <=2 ug/ml: Susceptible Proteus mirabilis Piperacillin/Tazobactam OMA <=4 ug/ml: Susceptible Proteus mirabilis Cefazolin (Urine) OMA 4 ug/ml: Susceptible Proteus mirabilis Cefoxitin OMA <=4 ug/ml: Susceptible Proteus mirabilis Ceftazidime OMA <=0.5 ug/ml: Susceptible Proteus mirabilis Ceftriaxone OMA <=0.25 ug/ml: Susceptible Proteus mirabilis Cefepime OMA <=0.12 ug/ml: Susceptible Proteus mirabilis Meropenem OMA <=0.25 ug/ml: Susceptible Proteus mirabilis Amikacin OMA 4 ug/ml: Susceptible Proteus mirabilis Gentamicin OMA <=1 ug/ml: Susceptible Proteus mirabilis Ciprofloxacin OMA 0.25 ug/ml: Susceptible Proteus mirabilis Levofloxacin OMA 0.25 ug/ml: Susceptible Proteus mirabilis Nitrofurantoin OMA 128 ug/ml: Resistant Proteus mirabilis Trimethoprim/Sulfame thoxazo le OMA <=20 ug/ml: Susceptible us [facility] - GENERAL ORDER ELBA Final Result [facility] [address] [place] [address], from Last 3 Months Insurance MEDICARE
--- OUTSIDE RECORDS SUMMARY | 2025-06-30 06:48 | XMS_ITS | Encounter Summary ---
Author Organization [facility] Address [address] [facility] [address] [place] [address] Phone Care Team Providers Care Marriage Therapist Name Role Phone Donald Barnett DO Primary Care Provider [phone] Brandon Daugherty MD Primary Care Provid er Encounter Details Date Type Department Care Team (Late st Contact Info) Description 05/03/2021 Procedure Pass [facility], Ct Scan - [address] [address] Social History Tobacco Use Types Packs/Day Years Used Date Smoking Tobacco: Never Assessed Sex and Gender Information Value Date Recorded Sex Assigned at Not on file Legal Sex Male 11:24 AM EDT Gender Identity Not on file Sexual Orientation Not on file documented as of this encounter Plan of Treatment Not on file documented as of this encounter Visit Diagnoses Not on filedocumented in this encounter Care Teams Marriage Therapist Relationship Specialty Start Date End Date Donald Barnett DO [address] [place] [id number] PCP - General Internal Medicine 05/03/21 09/21/24 Brandon Daugherty MD [address] [place] [address] [address] PCP - General Internal Medicine 09/22/24 documented as of this encounter Additional Source Comments The information contained in this document represents components of the legal health record. It is not the complete legal health record.[facility]
--- OUTSIDE RECORDS SUMMARY | 2025-06-30 06:48 | XMS_ITS | Patient Health Record ---
Author Organization [facility] Address [address] [place] [phone] Care Team Providers Care Gluing Machine Offbearer Name Role Phone Ericka (RETIRED) Donald JENNINGS [...] Date End Date Status Primidone 50 MG Tablet TAKE 1 TABLET ORA LLY ONCE A DAY FOR 6WKS THEN 1 TABLET TWICE DAILY Oral; Duration: 90 Active Gabapentin 300 MG Capsule 1 capsule Oral ly Once a day; Duration: 30 day(s) Active Omeprazole 20 MG Capsule Delayed Release TAKE 1 CAPSULE BY MOUTH 30 MINUTES BEFORE MORNING MEAL ONCE DAILY; Duration: 30 Active Dulera 200-5 MCG/ACT Aerosol INHALE 2 PUFFS EVERY 12 HOURS Inhalation; Duration: 30 Active Pravastatin Sodium 40 MG Tablet 1 tablet Orally Once a day; Duration: 30 day(s) Active Propranolol HCl ER 60 MG Capsule Extended Release 24 Hour 1 capsule Orally Once a day; Duration: 30 day(s) Active Allopurinol 300 MG Tablet 1 tablet Orall y Once a day; Duration: 30 day(s) Active Lisinopril 40 MG Tablet 1 tablet Orally Once a day; Duration: 30 day(s) Active Aspirin 81 81 MG Tablet Chewable 1 tablet Orally Once a day; Duration: 30 day(s) Active ALPRAZolam 0.5 MG Tablet 1 tablet Orally Twice a day Active Vitamin D 50 MCG (2000 UT) Capsule 1 capsule Orally Once a day; Duration: 30 day(s) Active Immunizations Vaccine Route Administration Date Status Comme nts Influenza Unknown 03/15/2021 Administered Influenza Unknown 06/30/2021 Administered Influenza Unknown 05/31/2022 Administered Influenza Unknown 05/22/2024 Administered Social History Tobacco Use: Social History Observation Description Date Details (start date - stop date) Never Smoker NA - NA Social History Drugs/Alcohol: Social Info Question Answer Notes Alcohol Screen Did you have a drink containing alcohol in the past year? Yes How often did you have a drink containing alcohol in the past year? Monthly or less (1 point) How many drinks did you have on a typical day when you were drinking in the past year? 1 or 2 drinks (0 point) How often did you have 6 or more drinks on one occasion in the past year? 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 Problem Irritable bowel syndrome characterized by constipation (712054759) Irritable bowel syndrome with constipation (K58.1) Active confirmed Encounters Encounter Location Date Provider Diagnosis [facility] [address] [facility] [address] [place] [phone] 06/03/2025 Francisco Blackburn Jr Plan Of Treatment Future Test Test Name Order Date UPPER GI ENDOSCOPY 03/15/2021 COLONOSCOPY 03/15/2021 UPPER GI ENDOSCOPY 03/01/2023 Next Appt Details Provider Name:Francisco lawson Jr, 10/06/2025 11:00:00 AM, [address], [address], [place], [address], Insurance Providers Payer Name Payer Address Payer Phone Subscriber Number Group Number Insured Name Patient Relationship to Insured Coverage Start Date Coverage End Date MEDICARE OF [place] [address] [place] [address] [phone] [id number] RUTHHAIDERJUAN Self - patient is the insured [employer] ATT[employer] CLAIMS [address] [place] [phone] [id number] RUTHHAIDERJUAN Self - patient is the insured Medical [...] cystoprostatectomy 2010 urethrectomy 2010 appendectomy 2010 urostomy 2010 Fistula repair with small bowel resectio n
--- OUTSIDE RECORDS SUMMARY | 2025-06-30 06:48 | XMS_ITS | Clinical Summary ---
Author Organization [facility] Address [address] [place] [address] [place] [id number] Phone Care Team Providers Care Mold Maker Plastic Molds Name Role Phone Brandon Daugherty MD Primary Care Provid er Allergies No known active allergies Social History Tobacco Use Types Packs/Day Years Used Date Smoking Tobacco: Never Assessed Education Answer Date Recorded Are you interested in more education? Not on rosa e 12/10/2022 Are you concerned about learning? Not on file 12/10/2022 No 12/10/2022 No 12/10/2022 Digital Access Answer Date Recorded No 01/10/2023 No 01/10/2023 Reliable internet access at home? Not on file 01/10/2023 Device with a working camera? Not on file Sex and Gender Information Value Date Recorded Sex Assigned at Not on file Legal Sex Male 11:24 AM EDT Gender Identity Not on file Sexual Orientation Not on file Last Filed Vital Signs Vital Sign Reading Time Taken Comments Blood Pressure 179/162 09/22/2024 10:00 PM EST Pulse 90 09/22/2024 6:53 PM EST Temperature 35.7 C (96.2 F) 09/22/2024 6:53 PM EST Respiratory Rate 18 09/22/2024 6:53 PM EST Oxygen Saturation 97% 09/22/2024 10:00 PM EST Inhaled Oxygen Concentration - - Weight - - Height - - Body Mass Index - - Plan of Treatment Health Maintenance Due Date Last Done Comments LIPID PANEL 1957 DEPRESSION SCREENING 1969 SMOKING Hx and SMOKELESS TOBACCO SCREENING 1970 HEPATITIS C SCREENING 1975 COLOGUARD 2002 COLONOSCOPY 2002 COLORECTAL CANCER SCREENING 2002 FIT TEST 2002 FOBT 2002 SIGMOIDOSCOPY 2002 VIRTUAL COLONOSCOPY 2002 ZOSTER VACCINES (1 of 2) 2007 PNEUMOCOCCAL VACCINES (50+ years) (2 of 2 - PCV20 or PCV21) 10/06/2016 10/06/2015 INFLUENZA VACCINE (#1) 2025 , 06/23/2020, 05/10/2019, Additional history exists COVID-19 VACCINE ( season) 2025 05/28/2021, 11/22/2020, 10/31/2020 Adult Td,Tdap Booster 05/30/2028 05/30/2018 RSV VACCINE (1 - 1-dose 75+ series) 2032 HEPATITIS A VACCINES Aged Out No long er eligible based on patient's age to complete this topic HIB VACCINES Aged Out No longer eligi ble based on patient's age to complete this topic IPV VACCINES Aged Out No longer eligi ble based on patient's age to complete this topic MENINGOCOCCAL VACCINES (ACWY) Aged Out No longer eligible based on patient's age to complete this topic MENINGOCOCCAL VACCINES (B) Aged Out N o longer eligible based on patient's age to complete this topic Medical Devices Not on file Insurance [facility] MEDEX SUPPLEMENT MEDICARE PART A & B [employer] MEDEX SUPPLEMENT MEDICARE PART A & B [employer] MEDEX SUPPLEMENT [employer] MEDEX SUPPLEMENT [employer] MEDEX SUPPLEMENT MEDICARE PART A & B Member Subscriber Plan / Payer (Ef fective 2022-Present) Name:Jorge Felipe Member ID:[id number] Relation to Subscriber:Self Name:Jorge Felipe Subscriber ID:[id number] Payer ID:[id number] Group ID:Not on file Type:Medicare Address: [facility] [employer] [facility].[address] [place] [phone] [employer] MEDEX SUPPLEMENT [employer] MED[employer] SUPPLEMENT [place]IC[place] PART A & [place] [id number] [employer] SUPPLEMENT MEDICARE PART A & B MEDEX SUPPLEMENT MEDICARE PART A & B Care Teams Mold Maker Plastic Molds Relationship Specialty Start Date End Date Brandon Daugherty MD [address] [place] [id number] PCP - General Internal Medicine 09/22/24 Additional Source Comments The information contained in this document represents components of the legal health record. It is not the complete legal health record.[facility]
--- OUTSIDE RECORDS SUMMARY | 2025-06-30 06:48 | XMS_ITS | Encounter Summary ---
Author Organization [facility] Address [address] [place] [address] [place] [phone] Phone Care Team Providers Care In Flight Refueling Operator Name Role Phone Donald Barnett DO Primary Care Provider + [phone] Brandon Daugherty MD Primary Care Provid er Reason for Referral * MRI/CAT Scan - Closed Specialty Diagnoses / Procedures Referred By Diaz stevenson Referred To Contact Radiology Diagnoses Malignant neoplasm of trigone of bladder Procedures CT Abdomen/Pelvis CHG CT SCAN,ABDOMENT AND PELVIS,COMBO CHG CT SCAN,ABDOMENT AND PELVIS,W CONTRAST CHG CT SCAN,ABDOMENT AND PELVIS,W/O CONTRAST Joseluis Myers MD Phone: tel: fax: [email or web address] Referral ID Status Reason Start Date Expiration Date Visits Re quested Visits Authorized [id number] Closed 04/27/2021 06/25/2021 1 1 Encounter Details Date Type Department Care Team (Latest Contact Info) Description 05/03/2021 Transcribe Orders Virtual Department [address] [place] [address] Joseluis Myers MD [facility], [address] [address] [email or web address] 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 No evidence of locally recurrent or metastatic bladder carcinoma. 2. Multifocal chronic cortical scarring in the right kidney. 3. No acute pathology. 4. Large ventral abdominal wall hernia without any bowel compromise. 5. Incidental diverticulosis without signs of diverticulitis. POS - [id number] Narrative 05/07/2021 1:13 PM EDT Automated Exposure Control. Multiplanar reconstructions. Water as oral contrast. Initially non-enhanced exam from adrenals to pelvic floor. Next portal venous phase contrast-enhanced exam of entire abdomen and pelvis. Lastly 8 minute delays from adrenals to the pelvic floor. Multiplanar reconstructions all phases. COMPARISON: None FINDINGS: No hydronephrosis. Ileal loop is unremarkable. No evidence of a urothelial mass in either collecting system or the loop. Focal areas of chronic cortical scarring in the mid and upper right kidney suggests prior pyelonephritis. No evidence of active pyelonephritis. No solid renal masses. No stones on either side. Liver, gallbladder, biliary tree, pancreas, spleen and adrenals all unremarkable. Moderate sigmoid diverticulosis. No evidence of diverticulitis, inflammatory bowel disease, bowel mass or obstruction. Very large widemouth anterior abdominal wall hernia containing numerous small and large bowel loops but no evidence of bowel compromise or obstruction. The ileal loop is not within the hernia but just along its right lateral margin. No nodules, infiltrate or effusion and the visualized lung bases. No acute or worrisome bony abnormalities. No significant vascular pathology. Procedure Note Marquise Elliott MD - 05/07/2021 Automated Exposure Control. Multiplanar reconstructions. Water as oral contrast. Initially non-enhanced exam from adrenals to pelvic floor. Next portal venous phase contrast-enhanced exam of entire abdomen andpelvis. Lastly 8 minute delays from adrenals to the pelvic floor. Multiplanar reconstructions all phases. COMPARISON: None FINDINGS: No hydronephrosis. Ileal loop is unremarkable. No evidence of a urothelial mass in either collecting system or theloop. Focal areas of chronic cortical scarring in the mid and upper right kidneysuggests prior pyelonephritis. No evidence of active pyelonephritis. No solid renal masses. No stones on either side. Liver, gallbladder, biliary tree, pancreas, spleen and adrenals allunremarkable. Moderate sigmoid diverticulosis. No evidence of diverticulitis,inflammatory bowel disease, bowel mass or obstruction. Very large widemouth anterior abdominal wall hernia containing numeroussmall and large bowel loops but no evidence of bowel compromise orobstruction. The ileal loop is not within the hernia but just along itsright lateral margin. No nodules, infiltrate or effusion and the visualized lung bases. No acute or worrisome bony abnormalities. No significant vascular pathology. IMPRESSION: 1. No evidence of locally recurrent or metastatic bladder carcinoma. 2. Multifocal chronic cortical scarring in the right kidney. 3. No acute pathology. 4. Large ventral abdominal wall hernia without any bowel compromise. 5. Incidental diverticulosis without signs of diverticulitis. 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 It is not the complete legal health record.[facility]
--- OUTSIDE RECORDS SUMMARY | 2025-06-30 06:48 | XMS_ITS | Encounter Summary ---
Author Organization [facility] Address [address] [place] [address] Care Team Providers Care Bi Report Developer Name Role Phone Unavailable Primary Care Provider Unavailabl e Encounter Details Date Type Department Care Team (Late st Contact Info) Description 05/23/2025 Lab Requisition [facility] - Main Lab [address] [facility] [place] [address] Elder Boykin PA [address] [place] [address] Other abnormal findings in urine Social History Tobacco Use Types Packs/Day Years Used Date Smoking Tobacco: Never Assessed Sex and Gender Information Value Date Recorded Sex Assigned at Not on file Legal Sex Male 2:22 PM EDT Gender Identity Not on file Sexual Orientation Not on file documented as of this encounter Plan of Treatment Not on file documented as of this encounter Procedures Procedure Name Priority Date/Time Associated Diagnosis Comments BACTERIAL IDENTIFICATION AND SUSCEPTIBILITY, AEROBIC Routine 05/22/2025 12:00 AM EDT Other abnormal findings in urine documented in this encounter Results * (ABNORMAL) Baterial identification and susceptibility, aerobic (05/22/2025 12:00 AM EDT) Culture, Bacterial ID and Sensitivity Escherichia coli(A) OMA 05/26/2025 9:52 AM EDT [facility] Comment: This is an edited result. Previous organism was Gram negative bacilli on 05/25/2025 at 0939 EDT. Culture, Bacterial ID and Sensitivity Klebsiella pneumoniae ssp pneumoniae(A) OMA 05/26/2025 9:52 AM EDT [facility] Comment: The organism value for this result has been updated. These results have been appended to the previously preliminary verified report. This is an edited result. Previous organism was Gram negative bacilli on 05/24/2025 at 1107 EDT. Culture, Bacterial ID and Sensitivity Proteus mirabilis(A) OMA 05/26/2025 9:52 AM EDT [facility] Comment: The organism value for this [...] previously preliminary verified report. Escherichia coli Ceftazidime OMA <=0.5 ug/ml: Susceptible Comment:This is an a [...] previously preliminary verified report. Escherichia coli Ciprofloxacin OMA <=0.06 ug/ml: Susceptible Comment:This is an a [...] MICROBIOLOGY - GENERAL ORDER ELBA Final Result [facility] [address] [place] [address], [place] [phone] documented in this encounter Visit Diagnoses Diagnosis Other abnormal findings in urine documented in this encounter
[2025-06-30 10:52] LABS: Blood Urea Nitrogen 18 mg/dL (9-16); Estimated Glomerular Filt Rate > 60
== END 2025-06-30 06:45 | disposition home or self-care (01) ==
LOC: HO.HMGCLDS 06:44
PROVIDERS: PCP Internal Medicine; Visit Provider Urology
DX: C67.0 Malignant neoplasm of trigone of bladder (principal)
CPT/HCPCS: 36415; 82565; 84520

== ENCOUNTER 2025-07-08 09:54 | Outpatient (AMB) | payer MEDICARE, SELFPAY ==
[2025-07-08 09:56] VITALS: BP 143/67; PULSE 60; RESP 16; TEMP 36.2; O2SAT 96; BMI 51.9
--- NOTE | 2025-07-08 09:56 | MHC.PC.OV ---
Vital Signs 07/08/25 09:56 Height 5 ft 10 in Weight 362 lb BMI 51.9 BP 143/67 H Blood Pressure Location Lt brachial Position Sitting Respiration 16 Pulse 60 Pulse Source Pulse Oximeter Temp 97.2 F Temp Source Temporal Artery Scan Pulse Oximetry (%) 96 Oxygen Delivery Method Room Air Intake Visit Reasons: 6 month f/u - see comments Band Lining Bander Required: No Accompanied by: Self / Same As Patient Allergies NSAIDS (Non-Steroidal Anti-Inflamma Adverse Reaction (Intermediate, Verified 07/08/25 09:57) Gastrointestinal Upset Tobacco use date assessed: 01/07/25 Dental Screening Dental Screen Date: 01/07/25 HPI HPI Comments History of Present Illness Details History of Present Illness - The patient is a 69 year old individual presenting for evaluation of right wrist pain, a right great toe issue, and medication refills. - The patient reports an ongoing issue with the right wrist following a ganglion cyst, with pain that subsides but returns with aggravation or activity. - The patient uses a brace frequently which alleviates the pain, and has recently started taking a previously prescribed Celebrex, which has also helped. - The pain, which can be severe enough to disrupt sleep, radiates up the arm. - About a year and a half ago, the patient sustained trauma to the right great toe after dropping a piece of lumber on it, leading to the loss of part of the nail. - Since then, the patient has had recurring problems with hangnails and recently developed a possible infection after trying to remove one. - The patient reports a chronic problem with waking up in the middle of the night and uses alprazolam a couple of times a week. - The patient also takes lisinopril 40 mg for hypertension. - Other history includes an ongoing tremor, but the patient remains able to drive and perform all activities of daily living. - The patient has been more active in the last year, including weightlifting. Social History - Functional Status: The patient is able to perform all activities of daily living and is able to drive. - Exercise: The patient has been more active over the last 12 months, engaging in weightlifting and walking. Results [facility] Medical History Asthma-COPD overlap syndrome COVID-19 vaccine series completed Asthma Prostate cancer Bladder cancer Essential tremor Sleep apnea Gout Elevated cholesterol HTN (hypertension) Surgical History Hx of appendectomy Hx of resection of small bowel Hx of prostatectomy Hx of cystoscopy Hx of cystoscopy H/O colonoscopy (~04/13/21) Family History Father Lung cancer Hypertension Mother No problems noted. Social History Household Members: Spouse Housing: House Are you a primary intensive care anaesthetist to a significant other at home: No Do you presently have visiting nurse or other home services: No Alcohol intake: current Alcohol intake frequency: holidays/special occasions only Patient Tobacco Use Status: Former Tobacco user Tobacco use type: Cigarette service: No Current occupational status: retired Cognitive needs: Yes (cane) Hearing needs: No Vision needs: Yes (rx glasses) Questionnaire PHQ-9 Over the last 2 weeks, how often have you been bothered by any of the following problems? 1. Little interest or pleasure in doing things: not at all 2. Feeling down, depressed, or hopeless: not at all 3. Trouble falling or staying asleep, or sleeping too much: nearly every day 4. Feeling tired or having little energy: not at all 5. Poor appetite or overeating: not at all 6. Feeling bad about yourself - or that you are a failure or have let yourself or your family down: not at all 7. Trouble concentrating on things, such as reading the newspaper or watching television: not at all 8. Moving or speaking so slowly that other people could have noticed. Or the opposite - being so fidgety or restless that you have been moving around a lot more than usual: not at all 9. Thoughts that you would be better off or of hurting yourself in some way: not at all Total score: 3 Source: Developed by Drs. Donald De Los Santos, Kathy Gaviria, Dewey Rothman and colleagues, with an educational sreedhar from [employer]. Thrive Questionnaire Date Thrive assessed: 01/07/25 I am a: Patient What is your living situation today?: I have a steady place to live Within the past 12 months, did the food you bought not last and you didn't have the money to get more?: Never true Within the past 12 months, did you worry whether your food would run out before you got money to buy more?: Never true Do you have trouble paying for medicines?: No Do you have trouble getting transportation to medical appointments?: No Do you have trouble paying your heating and electricity bill?: No Do you have trouble taking care of your child, family member or friend?: No Do you have trouble with day-to-day activities such as bathing, preparing meals, shopping, managing finances, etc.?: No Are you currently unemployed and looking for a job?: No Are you interested in more education?: No Please select the resources that you would like help with: None THRIVE Score: 0 AUDIT C Alcohol Use Questionnaire (AUDIT-C) 1. How often do you have a drink containing alcohol?: Monthly or less 2. How many drinks containing alcohol do you have on a typical day when you are drinking?: 1 or 2 3. How often do you have six or more drinks on one occasion?: Never Total Score: 1 JAIME-7 AMB Questionnaire JAIME-7 Date JAIME - 7 assessed: 01/07/25 Feeling nervous, anxious, or on edge: 0 = Not at all Not being able to stop or control worryin = Not at all Worrying too much about different things: 0 = Not at all Trouble relaxin = Not at all Being so restless that it is hard to sit still: 0 = Not at all Becoming easily annoyed or irritable: 0 = Not at all Feeling afraid as if something awful might happen: 0 = Not at all Total JAIME-7 score (0-4 normal; 5-9 mild; 10-14 moderate; 15-21 severe): 0 Source: Developed by Drs. Donald De Los Santos, Kathy Gaviria, Dewey Rothman and colleagues, with an educational sreedhar from [employer]. Review of Systems Narrative Review of Systems - Musculoskeletal: Reports ongoing pain in the right wrist that radiates up the arm. - Integumentary: Reports recurring hangnails on the right great toe and a history of trauma to the nail. - Neurological: Reports an ongoing tremor. - Psychiatric: Reports chronic insomnia characterized by waking in the middle of the night. - Constitutional: Denies issues with activities of daily living. Physical exam (Primary Care) Vital Signs: Last Vital Signs Temp 97.2 F 07/08/25 09:56 Pulse 60 07/08/25 09:56 Resp 16 07/08/25 09:56 BP 143/67 H 07/08/25 09:56 Pulse Ox 96 07/08/25 09:56 Oxygen Delivery Method Room Air 07/08/25 09:56 BMI result Body Mass Index 51.9 Tobacco/Smoking Status: Tobacco use Status Tobacco use date assessed 01/07/25 07/08/25 10:01 Patient Tobacco Use Status Former Tobacco user 07/08/25 10:01 Tobacco use type Cigarette 07/08/25 10:01 PHQ-9: PHQ-9 Score PHQ-9: Total score 3 07/08/25 10:01 Thrive Assessment: Date of Thrive Assessment Date Thrive assessed 01/07/25 07/08/25 10:01 Narrative Physical Exam General: Appearance normal, both eyes and all related structures Nutritional Appearance: Well nourished Orientation/consciousness: Patient oriented x3 Limitations: No limitations Head: Normal to inspection Neck: Normal visual inspection Chest: Normal palpation of entire chest wall Respiratory: Normal respiratory effort Neurology: Patient oriented x3, ongoing issue with tremor Right wrist: Full range of motion Right foot: Great toe: Ingrowing nail. Coding Level of Care Code Complex visit Add On G2211 Diagnoses Sprain of wrist, right S63.501A Paronychia of great toe L03.039 Assessment & Plan Assessment & Plan (1) Sprain of wrist, right: Code(s): S63.501A - Unspecified sprain of right wrist, initial encounter Plan: X-ray ordered. (2) Paronychia of great toe: Code(s): L03.039 - Cellulitis of unspecified toe Plan Plan - Right Wrist Pain: An X-ray of the right wrist will be ordered. - Right Wrist Pain: A prescription for Celebrex will be sent for one month's duration. - Right Wrist Pain: The patient is to continue using a brace every day for one month and then reassess. - Right Wrist Pain: If pain returns after stopping the brace, a steroid injection will be the next step. - Paronychia, Right Great Toe: A referral will be placed to a manufacturing lab technician for further management, likely involving partial nail removal. - Essential Hypertension: The lisinopril 40 mg prescription will be renewed. - Insomnia: A prescription for 30 pills of alprazolam will be sent, to be used sparingly as needed. - Health Maintenance: Orders will be placed for blood work and a urinalysis. - Follow-up: The patient will follow up in six months. Discussion Notes I have discussed the plan for the patient's right wrist, which includes ordering an X-ray and prescribing Celebrex for one month, along with daily use of a brace. I advised that if the pain returns after this period, the next step would be a steroid injection. Regarding the right great toe, I identified the condition as paronychia and will refer the patient to a manufacturing lab technician for management, which will likely involve a procedure to remove part of the nail. I informed the patient that I will renew the prescriptions for lisinopril and alprazolam, advising that the alprazolam should be used sparingly for insomnia. I confirmed that orders for blood work and the X-ray have been placed and can be completed at the same facility. We agreed on a follow-up appointment in six months. Patient Instructions - For your right wrist, wear the brace every day for one month. - A prescription for Celebrex has been sent to your pharmacy; take it for one month as directed. - Go for an X-ray of your right wrist; you can do this at the same time as your blood work. - For the recurring issue with your right big toe, you will be referred to a engineering technical specialist (manufacturing lab technician). - Please contact our office if you do not hear from the specialist's office soon. - Continue taking your lisinopril for blood pressure as prescribed. - Use alprazolam only when needed for sleep, as you have been doing. - Please go for blood work and provide a urine sample as ordered. - Please schedule a follow-up appointment in six months. Orders: Orders XR wrist RT 2V Today S63.501A - Unspecified sprain of right wrist, initial encounter Referrals Podiatry Referral L03.039 - Cellulitis of unspecified toe Medications: New celecoxib (Celebrex) 200 mg PO DAILY 30 caps 0RF Refilled alprazolam 0.5 mg (1/2 x 1 mg) PO DAILY PRN 30 tabs 0RF anxiety lisinopril 40 mg PO DAILY 90 tabs 1RF
--- OUTSIDE RECORDS SUMMARY | 2025-07-08 11:45 | XMS_ITS | Clinical Summary ---
Author Organization 299 [facility] Address [address] [place] [address] Phone Care Team Providers Care Chief Radiology Name Role Phone Unavailable Primary Care Provider Unavailabl e Encounters Date Type Department Care Team Description 05/23/2025 Lab Requisition [facility] - Main Lab 299 [facility] [place] [address] Elder Boykin PA Other abnormal [...] susceptibility, aerobic (05/22/2025 12:00 AM EDT) Pathologist [facility] Culture, Bacterial ID and Sensitivity Escherichia coli(A) OMA 05/26/2025 9:52 AM EDT [facility] Comment: This is an edited result. Previous organism was Gram negative bacilli on 05/25/2025 at 0939 EDT. Culture, Bacterial ID and Sensitivity Klebsiella pneumoniae ssp pneumoniae(A) OMA 05/26/2025 9:52 AM EDT [facility] Comment: The organism value for this result has been updated. These results have been appended to the previously preliminary verified report. This is an edited result. Previous organism was Gram negative bacilli on 05/24/2025 at 1107 EDT. Culture, Bacterial ID and Sensitivity Proteus mirabilis(A) OMA 05/26/2025 9:52 AM EDT [facility] Comment: The organism value [...] MICROBIOLOGY - GENERAL ORDER ELBA Final Result [facility] ([facility]) [facility] [address] [place] [address], from Last 3 Months Insurance MEDICARE
--- OUTSIDE RECORDS SUMMARY | 2025-07-08 11:45 | XMS_ITS | Encounter Summary ---
Author Organization [facility] Address [address] [facility] [place] [address] Phone Care Team Providers Care Freight Hustler Name Role Phone Donald Barnett DO Primary Care Provider [phone] Brandon Daugherty MD Primary Care Provid er Encounter Details Date Type Department Care Team (Late st Contact Info) Description 05/03/2021 Procedure Pass [facility], Ct Scan - [address] [address] Social History Tobacco Use Types Packs/Day Years [...] on filedocumented in this encounter Care Teams Freight Hustler Relationship Specialty Start Date End Date Donald Barnett DO [address] [place] [address] PCP - General Internal Medicine 05/03/21 09/21/24 Brandon Daugherty MD [address] [place] [address] [address] PCP - General Internal Medicine 09/22/24 documented as of this encounter Additional Source Comments The information contained in this document represents components of the legal health record. It is not the complete legal health record.[facility]
--- OUTSIDE RECORDS SUMMARY | 2025-07-08 11:45 | XMS_ITS | Encounter Summary ---
Author Organization [facility] Address [address] [place] [address] [place] [address] Phone Care Team Providers Care Forger Helper Name Role Phone Donald Barnett DO Primary Care Provider + [phone] Brandon Daugherty MD Primary Care Provid er Reason for Referral * MRI/CAT Scan - Closed Specialty Diagnoses / Procedures Referred By Diaz stevenson Referred To Contact Radiology Diagnoses Malignant neoplasm of trigone of bladder Procedures CT Abdomen/Pelvis CHG CT SCAN,ABDOMENT AND PELVIS,COMBO CHG CT SCAN,ABDOMENT AND PELVIS,W CONTRAST CHG CT SCAN,ABDOMENT AND PELVIS,W/O CONTRAST Joseluis Myers MD Phone: tel: fax: mailto:[email or web address] Referral ID Status Reason Start Date Expiration Date Visits Re quested Visits Authorized [id number] Closed 04/27/2021 06/25/2021 1 1 Encounter Details Date Type Department Care Team (Latest Contact Info) Description 05/03/2021 Transcribe Orders Virtual Department 30 [place] [address] Joseluis Myers MD [facility], [address] [address] [email or web address] Malignant neoplasm of trigone of bladder [...] bladder documented in this encounter Care Teams Forger Helper Relationship Specialty Start Date End Date Donald Barnett DO [address] [place] [address] PCP - General Internal Medicine 05/03/21 09/21/24 Brandon Daugherty MD [address] [place] [address] PCP - General Internal Medicine 09/22/24 documented as of this encounter Additional Source Comments The information contained in this document represents components of the legal health record. It is not the complete legal health record.[facility]
--- OUTSIDE RECORDS SUMMARY | 2025-07-08 11:45 | XMS_ITS | Encounter Summary ---
Author Organization [facility] Address [address] [place] [address] Care Team Providers Care Manager Machine Name Role Phone Unavailable Primary Care Provider Unavailabl e Encounter Details Date Type Department Care Team (Late st Contact Info) Description 05/23/[address] [facility] - Main Lab 299 [facility] [place] [address] Elder Boykin PA [address] [place] [address] Other abnormal findings in urine Social History [...] Escherichia coli(A) OMA 05/26/2025 9:52 AM EDT [facility] Comment: This is an edited result. Previous organism was Gram negative bacilli on 05/25/2025 at 0939 EDT. Culture, Bacterial ID and Sensitivity Klebsiella pneumoniae ssp pneumoniae(A) OMA 05/26/2025 9:52 AM EDT [facility] Comment: The organism value for this result has been updated. These results have been appended to the previously preliminary verified report. This is an edited result. Previous organism was Gram negative bacilli on 05/24/2025 at 1107 EDT. Culture, Bacterial ID and Sensitivity Proteus mirabilis(A) OMA 05/26/2025 9:52 AM EDT [facility] Comment: The organism value for [...] MICROBIOLOGY - GENERAL ORDER ELBA Final Result [facility] ([facility] [address] [place] [address], [place] [phone] documented in this encounter Visit Diagnoses Diagnosis Other abnormal findings in urine documented in this encounter
--- OUTSIDE RECORDS SUMMARY | 2025-07-08 11:45 | XMS_ITS | Clinical Summary ---
Author Organization [facility] Address [address] [place] [address] [place] [address] Phone Care Team Providers Care Machine Specialist Name Role Phone Brandon Daugherty MD Primary [...] topic Medical Devices Not on file Insurance MEDICARE PART A & B Member Subscriber Plan / Payer (Ef fective 2022-Present) Name:Jorge Felipe Member ID:[id number] Relation to Subscriber:Self Name:Jorge Felipe Subscriber ID:[id number] Payer ID:[id number] Group ID:Not on file Type:Medicare Address: [facility] [employer] [facility] [address] [place] [address] [employer] MED[employer] SUPPLEMENT MEDICARE PART A & B [employer] SUPPLEMENT [employer] MED[employer] SUPPLEMENT [employer] MED[employer] SUPPLEMENT MEDICARE PART A & B [employer] SU[employer]MENT [employer] MEDEX SUPPLEMENT MEDICARE PART A & B [employer] SUPPLEMENT MEDICARE PART A & B [employer] SU[employer] MEDICARE PART A & B Care Teams Machine Specialist Relationship Specialty Start Date End Date Brandon Daugherty MD [address] [place] [address] PCP - General Internal Medicine 09/22/24 Additional Source Comments The information contained in this document represents components of the legal health record. It is not the complete legal health record.[facility]
== END 2025-07-08 10:45 | disposition home or self-care (01) ==
LOC: HO.HMCSH 09:54
PROVIDERS: PCP Internal Medicine; Visit Provider Internal Medicine
DX: S63.501A Unspecified sprain of right wrist, initial encounter (principal); L03.031 Cellulitis of right toe

== ENCOUNTER → 2025-07-08 09:54 | Outpatient (BNVA) | payer MEDICARE, SELFPAY | PROVIDERS: PCP Internal Medicine; Visit Provider Internal Medicine | DX: S63.501D Unspecified sprain of right wrist, subsequent encounter (principal); I10 Essential (primary) hypertension; L03.031 Cellulitis of right toe | CPT/HCPCS: 99212 ==

== ENCOUNTER 2025-07-14 11:06 | Outpatient (REF) | payer MEDICARE, SELFPAY ==
--- NOTE | ~2025-07-14 | XR_ITS ---
EXAMINATION: XR WRIST, RIGHT CLINICAL INFORMATION: S63.501A - Unspecified sprain of right wrist, initial encounter COMPARISON: None available. TECHNIQUE: PA, lateral, and oblique views of the right wrist. FINDINGS: No visible acute fracture, dislocation or suspicious bony lesion.. Alignment is anatomic. Mild-moderate first CMC arthritis. Apparent mild second MCP joint space narrowing. No erosions or abnormal soft tissue calcifications. XR/XR wrist RT min 3V IMPRESSION: No acute findings. Arthritis as above. Electronically signed by: Blayne Fowler MD 07/14/2025 04:05 PM [facility]
--- OUTSIDE RECORDS SUMMARY | 2025-07-14 14:34 | XMS_ITS | Clinical Summary ---
Author Organization 299 [facility] Address [address] [place] [address] Phone Care Team Providers Care Bus Or Truck Garage Mechanic Name Role Phone Unavailable Primary Care Provider Unavailabl e Encounters Date Type Department Care Team Description 05/23/2025 Lab Requisition [facility] - Main Lab 299 [facility] [place] [address] Elder Boykin PA Other abnormal [...] susceptibility, aerobic (05/22/2025 12:00 AM EDT) Pathologist [facility] Culture, Bacterial ID and Sensitivity Escherichia coli(A) OMA 05/26/2025 9:52 AM EDT [facility] Comment: This is an edited result. Previous organism was Gram negative bacilli on 05/25/2025 at 0939 EDT. Culture, Bacterial ID and Sensitivity Klebsiella pneumoniae ssp pneumoniae(A) OMA 05/26/2025 9:52 AM EDT [facility] Comment: The organism value for this result has been updated. These results have been appended to the previously preliminary verified report. This is an edited result. Previous organism was Gram negative bacilli on 05/24/2025 at 1107 EDT. Culture, Bacterial ID and Sensitivity Proteus mirabilis(A) OMA 05/26/2025 9:52 AM EDT [facility] Comment: The organism value for [...] MICROBIOLOGY - GENERAL ORDER ELBA Final Result [facility] ([facility]) [facility] [address] [place] [address], from Last 3 Months Insurance MEDICARE
--- OUTSIDE RECORDS SUMMARY | 2025-07-14 14:34 | XMS_ITS | Encounter Summary ---
Author Organization [facility] Address [address] [facility] [address] [place] [address] Phone Care Team Providers Care Etl Informatica Developer Name Role Phone Donald Barnett DO Primary Care Provider [phone] Brandon Daugherty MD Primary Care Provid er Encounter Details Date Type Department Care Team (Late st Contact Info) Description 05/03/2021 Procedure Pass [facility], Ct Scan - [address] [address] Social History Tobacco Use Types Packs/Day Years [...] on filedocumented in this encounter Care Teams Etl Informatica Developer Relationship Specialty Start Date End Date Donald Barnett DO [address] [place] [address] PCP - General Internal Medicine 05/03/21 09/21/24 Brandon Daugherty MD [address] [place] [address] [address] PCP - General Internal Medicine 09/22/24 documented as of this encounter Additional Source Comments The information contained in this document represents components of the legal health record. It is not the complete legal health record.[facility]
--- OUTSIDE RECORDS SUMMARY | 2025-07-14 14:34 | XMS_ITS | Encounter Summary ---
Author Organization [facility] Address [address] [place] [address] Care Team Providers Care Furnace Builder Name Role Phone Unavailable Primary Care Provider Unavailabl e Encounter Details Date Type Department Care Team (Late st Contact Info) Description 05/23/2025 Lab Requisition [facility] - Main Lab 299 [facility] [place] [address] Elder Boykin PA [address] [place] [address] Other abnormal findings in urine Social History [...] Escherichia coli(A) OMA 05/26/2025 9:52 AM EDT [facility] Comment: This is an edited result. Previous organism was Gram negative bacilli on 05/25/2025 at 0939 EDT. Culture, Bacterial ID and Sensitivity Klebsiella pneumoniae ssp pneumoniae(A) OMA 05/26/2025 9:52 AM EDT [facility] Comment: The organism value for this result has been updated. These results have been appended to the previously preliminary verified report. This is an edited result. Previous organism was Gram negative bacilli on 05/24/2025 at 1107 EDT. Culture, Bacterial ID and Sensitivity Proteus mirabilis(A) OMA 05/26/2025 9:52 AM EDT [facility] Comment: The organism value [...] MICROBIOLOGY - GENERAL ORDER ELBA Final Result [facility] ([facility] [address] [place] [address], [place] [phone] documented in this encounter Visit Diagnoses Diagnosis Other abnormal findings in urine documented in this encounter
--- OUTSIDE RECORDS SUMMARY | 2025-07-14 14:34 | XMS_ITS | Encounter Summary ---
Author Organization [facility] Address [address] [place] [address] [place] [address] Phone Care Team Providers Care Molded Goods Operator Name Role Phone Donald Barnett DO Primary Care Provider + [phone] Brandon Daugherty MD Primary Care Provid er Reason for Referral * MRI/CAT Scan - Closed Specialty Diagnoses / Procedures Referred By Diaz stevenson Referred To Contact Radiology Diagnoses Malignant neoplasm of trigone of bladder Procedures CT Abdomen/Pelvis CHG CT SCAN,ABDOMENT AND PELVIS,COMBO CHG CT SCAN,ABDOMENT AND PELVIS,W CONTRAST CHG CT SCAN,ABDOMENT AND PELVIS,W/O CONTRAST Joseluis Myers MD Phone: tel: fax: mailto:[email or web address] Referral ID Status Reason Start Date Expiration Date Visits Re quested Visits Authorized [id number] Closed 04/27/2021 06/25/2021 1 1 Encounter Details Date Type Department Care Team (Latest Contact Info) Description 05/03/2021 Transcribe Orders Virtual Department [address] [place] [address] Joseluis Myers MD [facility], [address] [address] [email or web address] Malignant neoplasm of trigone of bladder [...] bladder documented in this encounter Care Teams Molded Goods Operator Relationship Specialty Start Date End Date Donald Barnett DO [address] [place] [address] PCP - General Internal Medicine 05/03/21 09/21/24 Brandon Daugherty MD [address] [place] [address] PCP - General Internal Medicine 09/22/24 documented as of this encounter Additional Source Comments The information contained in this document represents components of the legal health record. It is not the complete legal health record.[facility]
--- OUTSIDE RECORDS SUMMARY | 2025-07-14 14:34 | XMS_ITS | Clinical Summary ---
Author Organization [facility] Address [address] [place] [address] [place] [address] Phone Care Team Providers Care Oracle Reports Developer Name Role Phone Brandon Daugherty MD Primary [...] file Insurance MEDICARE PART A & B [employer] MEDEX SUPPLEMENT MEDICARE PART A & B [employer] MEDEX SUPPLEMENT [employer] MEDEX SUPPLEMENT [employer] MEDEX SUPPLEMENT MEDICARE PART A & B [employer] MEDEX SUPPLEMENT [employer] MEDEX SUPPLEMENT MEDICARE PART A & B [employer] MEDEX SUPPLEMENT MEDICARE PART A & B MED[employer] SUPPLEMENT MEDICARE PART A & B Care Teams Oracle Reports Developer Relationship Specialty Start Date End Date Brandon Daugherty MD [address] [place] [address] PCP - General Internal Medicine 09/22/24 Additional Source Comments The information contained in this document represents components of the legal health record. It is not the complete legal health record.[facility]
== END 2025-07-14 11:07 | disposition home or self-care (01) ==
LOC: HO.HMGCX 11:06
PROVIDERS: PCP Internal Medicine; Visit Provider Internal Medicine
DX: S56.501A Unspecified injury of other extensor muscle, fascia and tendon at forearm level, right arm, initial encounter (principal)
CPT/HCPCS: 73110

== ENCOUNTER → 2025-07-14 11:09 | Outpatient (BNV) | payer MEDICARE, SELFPAY | PROVIDERS: PCP Internal Medicine; Visit Provider Radiology Diagnostic Ultrasound | DX: S63.501A Unspecified sprain of right wrist, initial encounter (principal); M19.031 Primary osteoarthritis, right wrist | CPT/HCPCS: 73110 ==

== ENCOUNTER 2025-07-16 06:35 | Outpatient (REF) | payer MEDICARE, SELFPAY ==
--- OUTSIDE RECORDS SUMMARY | 2025-07-16 06:38 | XMS_ITS | Clinical Summary ---
Author Organization [facility] Address [address] [place] [address] [place] [address] Phone Care Team Providers Care Communications Department Head Name Role Phone Brandon Daugherty MD Primary [...] file Insurance MEDICARE PART A & B [employer] MEDEX SUPPLEMENT MEDICARE PART A & B [employer] MEDEX SUPPLEMENT [employer] MEDEX SUPPLEMENT [employer] MEDEX SUPPLEMENT MEDICARE PART A & B [employer] MEDEX SUPPLEMENT [employer] MEDEX SUPPLEMENT MEDICARE PART A & B [employer] MEDEX SUPPLEMENT MEDICARE PART A & B MED[employer] SUPPLEMENT MEDICARE PART A & B Care Teams Communications Department Head Relationship Specialty Start Date End Date Brandon Daugherty MD [address] [place] [address] PCP - General Internal Medicine 09/22/24 Additional Source Comments The information contained in this document represents components of the legal health record. It is not the complete legal health record.[facility]
--- OUTSIDE RECORDS SUMMARY | 2025-07-16 06:39 | XMS_ITS | Encounter Summary ---
Author Organization [facility] Address [address] [place] [address] Care Team Providers Care Garnett Machine Operator Helper Name Role Phone Unavailable Primary Care Provider Unavailabl e Encounter Details Date Type Department Care Team (Late st Contact Info) Description 05/23/2025 Lab Requisition [facility] - Main Lab 299 [facility] [place] [address] Elder Boykin PA [address] [place] [address] Other abnormal findings in urine Social History [...] Escherichia coli(A) OMA 05/26/2025 9:52 AM EDT [facility] Comment: This is an edited result. Previous organism was Gram negative bacilli on 05/25/2025 at 0939 EDT. Culture, Bacterial ID and Sensitivity Klebsiella pneumoniae ssp pneumoniae(A) OMA 05/26/2025 9:52 AM EDT [facility] Comment: The organism value for this result has been updated. These results have been appended to the previously preliminary verified report. This is an edited result. Previous organism was Gram negative bacilli on 05/24/2025 at 1107 EDT. Culture, Bacterial ID and Sensitivity Proteus mirabilis(A) OMA 05/26/2025 9:52 AM EDT [facility] Comment: The organism value for [...] MICROBIOLOGY - GENERAL ORDER ELBA Final Result [facility] ([facility] [address] [place] [address], [place] [phone] documented in this encounter Visit Diagnoses Diagnosis Other abnormal findings in urine documented in this encounter
--- OUTSIDE RECORDS SUMMARY | 2025-07-16 06:39 | XMS_ITS | Encounter Summary ---
Author Organization [facility] Address [address] [facility] [address] [place] [address] Phone Care Team Providers Care Internet Marketing Director Name Role Phone Donald Barnett DO Primary Care Provider [phone] Brandon Daugherty MD Primary Care Provid er Encounter Details Date Type Department Care Team (Late st Contact Info) Description 05/03/2021 Procedure Pass [facility], Ct Scan - [address] [address] Social History Tobacco Use Types Packs/Day Years [...] on filedocumented in this encounter Care Teams Internet Marketing Director Relationship Specialty Start Date End Date Donald Barnett DO [address] [place] [address] PCP - General Internal Medicine 05/03/21 09/21/24 Brandon Daugherty MD [address] [place] [address] [address] PCP - General Internal Medicine 09/22/24 documented as of this encounter Additional Source Comments The information contained in this document represents components of the legal health record. It is not the complete legal health record.[facility]
--- OUTSIDE RECORDS SUMMARY | 2025-07-16 06:39 | XMS_ITS | Clinical Summary ---
Author Organization 299 [facility] Address [address] [place] [address] Phone Care Team Providers Care Chief Of Field Operations Name Role Phone Unavailable Primary Care Provider Unavailabl e Encounters Date Type Department Care Team Description 05/23/2025 Lab Requisition [facility] - Main Lab [address] [facility] [place] [address] Elder Boykin PA Other abnormal [...] susceptibility, aerobic (05/22/2025 12:00 AM EDT) Pathologist [facility] Culture, Bacterial ID and Sensitivity Escherichia coli(A) [...] MICROBIOLOGY - GENERAL ORDER ELBA Final Result [facility] ([facility]) [facility] [address] [place] [address], from Last 3 Months Insurance MEDICARE
--- OUTSIDE RECORDS SUMMARY | 2025-07-16 06:39 | XMS_ITS | Encounter Summary ---
Author Organization [facility] Address [address] [place] [address] [place] [address] Phone Care Team Providers Care Algorithm Developer Name Role Phone Donald Barnett DO Primary Care Provider + [phone] Brandon Daugherty MD Primary Care Provid er Reason for Referral * MRI/CAT Scan - Closed Specialty Diagnoses / Procedures Referred By Diaz stevenson Referred To Contact Radiology Diagnoses Malignant neoplasm of trigone of bladder Procedures CT Abdomen/Pelvis CHG CT SCAN,ABDOMENT AND PELVIS,COMBO CHG CT SCAN,ABDOMENT AND PELVIS,W CONTRAST CHG CT SCAN,ABDOMENT AND PELVIS,W/O CONTRAST Joseluis Myers MD Phone: tel: fax: [email or web address]:[email or web address] Referral ID Status Reason Start Date Expiration Date Visits Re quested Visits Authorized [id number] Closed 04/27/2021 06/25/2021 1 1 Encounter Details Date Type Department Care Team (Latest Contact Info) Description 05/03/2021 Transcribe Orders Virtual Department [address] [place] [address] Joseluis Myers MD [facility], [address] [address] [email or web address] Malignant neoplasm of trigone of bladder [...] bladder documented in this encounter Care Teams Algorithm Developer Relationship Specialty Start Date End Date Donald Barnett DO [address] [place] [address] PCP - General Internal Medicine 05/03/21 09/21/24 Brandon Daugherty MD [address] [place] [address] PCP - General Internal Medicine 09/22/24 documented as of this encounter Additional Source Comments The information contained in this document represents components of the legal health record. It is not the complete legal health record.[facility]
[2025-07-16 10:34] LABS: Hematocrit 42.9 % (42.0-52.0); Hemoglobin 14.8 g/dl (14.0-18.0); Mean Corpuscular HGB Conc 34.5 g/dl (31.0-36.0); Mean Corpuscular Hemoglobin 30.3 pg (27.0-33.0); Mean Corpuscular Volume 87.7 fL (80.0-98.0); NRBC Abs Auto 0.000 X10*3/uL (0.0-0.012); NRBC Pct Auto 0.0 /100WBC (0.0-0.2); Platelet Count 282 X10*3/uL (160-400); Red Blood Count 4.89 X10*6/uL (4.60-5.80); White Blood Count 8.6 X10*3/uL (4.8-10.8)
[2025-07-16 11:10] LABS: Alanine Aminotransferase 31 U/L (0-40); Albumin Level 4.5 g/dL (3.5-5.0); Alkaline Phosphatase 76 U/L (39-117); Anion Gap 12 (12-20); Aspartate Amino Transferase 33 U/L (5-37); Blood Urea Nitrogen 21 mg/dL (9-16); Calcium 8.9 mg/dL (8.4-10.2); Carbon Dioxide 25 mmol/L (22-29); Chloride 106 mmol/L (96-108); Cholesterol 129 mg/dL (<200); Estimated Glomerular Filt Rate > 60; HDL Cholesterol 37 mg/dL (>40); Potassium 4.1 mmol/L (3.3-5.1); Sodium 139 mmol/L (135-145); Thyroid Stimulating Hormone 2.43 uIU/mL (0.32-4.0); Total Protein 6.8 g/dL (6.5-8.0); Triglycerides 135 mg/dL (<150)
[2025-07-16 11:23] LABS: Appearance Urine Cloudy; Glucose Urine UA Negative (Negative); PH >= 9.0 (5.0-9.0); Specific Gravity - Urine 1.010 (1.005-1.025); UMIC TRIGGER UA YES
[2025-07-16 11:36] LABS: Other Crystals Urine Present
== END 2025-07-16 06:36 | disposition home or self-care (01) ==
LOC: HO.HMGCLDS 06:35
PROVIDERS: PCP Internal Medicine; Visit Provider Internal Medicine
DX: I10 Essential (primary) hypertension (principal); Z13.1 Encounter for screening for diabetes mellitus; Z12.5 Encounter for screening for malignant neoplasm of prostate
CPT/HCPCS: 36415; 80048; 80061; 80076; 81001; 81003; 83036; 84153; 84443; 85027